=== PATIENT | male | born 1955 | race Caucasian/White ===

== ENCOUNTER 2020-09-16 16:41 | Inpatient (IN) ==
[2020-09-16] MEDS ORDERED: Naloxone 0.4 MG/ML INJ IVP PRN (21:48)
[2020-09-16] MEDS ORDERED: Acetaminophen 325 MG TABLET PO PRN (21:48)
[2020-09-16] MEDS ORDERED: Perflutren Lipid Microsphere 1.3 ML in 0.9 % Sodium Chloride 8.7 ML IVP PRN (22:42)
[2020-09-16] MEDS ORDERED: Milk and Molasses Enema 200 ML RC ONE (22:43)
[2020-09-16 22:55] LABS: BUN/Creatinine Ratio 49 (6-26); Blood Urea Nitrogen 41 mg/dL (8-23); Calcium 9.9 mg/dL (8.6-10.3); Carbon Dioxide 27 mEq/L (23-29); Chloride 95 mEq/L (98-107); Glucose 118 mg/dL (70-105); Osmolality,Calculated 281 (280-300); Potassium 4.8 mEq/L (3.5-5.1); Sodium 130 mEq/L (136-145); eGFR For African Americans > 60 (> 60); eGFR For Non-African Americans > 60 (> 60)
[2020-09-17 02:09] LABS: Alanine Aminotransferase 14 Units/L (7-52); Albumin 3.3 g/dL (3.5-5.7); Albumin/Globulin Ratio 1.2 (1.1-2.2); Alkaline Phosphatase 68 Units/L (34-104); Aspartate Amino Transferase 15 Units/L (13-39); BUN/Creatinine Ratio 48 (6-26); Bilirubin,Total 0.7 mg/dL (0.3-1.0); Blood Urea Nitrogen 43 mg/dL (8-23); Calcium 9.8 mg/dL (8.6-10.3); Carbon Dioxide 27 mEq/L (23-29); Chloride 96 mEq/L (98-107); Globulin 2.7 g/dL (2.4-3.5); Glucose 113 mg/dL (70-105); Magnesium 2.1 mg/dL (1.6-2.6); Osmolality,Calculated 282 (280-300); Potassium 4.8 mEq/L (3.5-5.1); Sodium 130 mEq/L (136-145); Troponin I < 0.03 ng/mL (< 0.04); eGFR For African Americans > 60 (> 60); eGFR For Non-African Americans > 60 (> 60)
[2020-09-17 02:09] LABS: Hematocrit 38.2 % (37.5-50.1); Hemoglobin 12.7 g/dL (12.9-16.9); Mean Corpuscular HGB Conc 33.2 g/dL (31.6-35.5); Mean Corpuscular Hemoglobin 29.7 pg (28.0-33.3); Mean Corpuscular Volume 89.3 fL (83.0-100.0); Mean Platelet Volume 9.8 fL (9.4-12.4); Platelet Count 170 K/mcL (140-400); Red Blood Count 4.28 M/mcL (4.19-5.50); Red Cell Distribution Width 13.4 % (11.5-14.5); White Blood Count 6.8 K/mcL (4.3-11.1)
[2020-09-17 02:16] LABS: INR 1.2
[2020-09-17 02:17] LABS: Thyroid Stimulating Hormone 1.157 mcIU/mL (0.340-5.600)
[2020-09-17 03:24] LABS: Lymphocytes # 0.8 K/mcL (0.6-4.6); Monocytes # 0.5 K/mcL (0.0-1.3); Platelet Estimate Normal (Normal); Reactive Lymphocytes Present (Not Present); Toxic Granulation Present (Not Present); Toxic Vacuolation Present (Not Present)
[2020-09-17 03:25] LABS: Poikilocytosis 1+ (Not Present)
[2020-09-17] MEDS: 0.9 % Sodium Chloride 1,000 ML IVC SCH ×2 (04:50→22:02)
[2020-09-17] MEDS: Ondansetron 4 MG/2 ML VIAL IVP PRN ×2 (09:21→20:27)
[2020-09-17 15:27] LABS: Hematocrit 36.1 % (37.5-50.1); Hemoglobin 12.1 g/dL (12.9-16.9)
[2020-09-17] MEDS: Divalproex (12 HR) 500 MG TABLET PO SCH (20:08)
[2020-09-18 05:21] LABS: Basophils % 0.1 %; Eosinophils % 0.1 %; Hematocrit 36.3 % (37.5-50.1); Hemoglobin 11.9 g/dL (12.9-16.9); Immature Granulocytes % 0.7 % (0-4); Lymphocytes # 0.9 K/mcL (0.6-4.6); Lymphocytes % 10.6 %; Mean Corpuscular HGB Conc 32.8 g/dL (31.6-35.5); Mean Corpuscular Hemoglobin 29.9 pg (28.0-33.3); Mean Corpuscular Volume 91.2 fL (83.0-100.0); Monocytes # 1.7 K/mcL (0.0-1.3); Monocytes % 18.7 %; Neutrophils # 6.2 K/mcL (1.6-8.9); Platelet Count 176 K/mcL (140-400); Red Blood Count 3.98 M/mcL (4.19-5.50); Red Cell Distribution Width 13.9 % (11.5-14.5); Segmented Neutrophils % 69.8 %; White Blood Count 8.9 K/mcL (4.3-11.1)
[2020-09-18 05:43] LABS: Platelet Estimate Normal (Normal)
[2020-09-18 05:45] LABS: BUN/Creatinine Ratio 48 (6-26); Blood Urea Nitrogen 47 mg/dL (8-23); Calcium 9.4 mg/dL (8.6-10.3); Carbon Dioxide 31 mEq/L (23-29); Chloride 105 mEq/L (98-107); Glucose 80 mg/dL (70-105); Osmolality,Calculated 299 (280-300); Potassium 4.4 mEq/L (3.5-5.1); Sodium 139 mEq/L (136-145); eGFR For African Americans > 60 (> 60); eGFR For Non-African Americans > 60 (> 60)
[2020-09-18] MEDS: Divalproex (12 HR) 500 MG TABLET PO SCH ×2 (07:42→21:55)
[2020-09-18] MEDS: BuPROPion XL (24 HR) 150 MG TABLET PO SCH (07:42)
[2020-09-18] MEDS ORDERED: Milk and Molasses Enema 200 ML RC ONE (07:47)
[2020-09-18] MEDS ORDERED: Metoprolol XL (24 HR) Succ 50 MG TAB.ER.24H PO SCH (09:00)
[2020-09-18] MEDS ORDERED: 0.9 % Sodium Chloride 1,000 ML IVC SCH (14:30)
[2020-09-18] MEDS ORDERED: 0.9 % Sodium Chloride 250 ML IVC ONE ×2 (15:50→17:16)
[2020-09-19 02:02] LABS: Hematocrit 34.8 % (37.5-50.1); Hemoglobin 11.5 g/dL (12.9-16.9); Mean Corpuscular Hemoglobin 30.6 pg (28.0-33.3); Mean Corpuscular Volume 92.6 fL (83.0-100.0); Mean Platelet Volume 9.9 fL (9.4-12.4); Platelet Count 176 K/mcL (140-400); Red Blood Count 3.76 M/mcL (4.19-5.50); Red Cell Distribution Width 14.1 % (11.5-14.5); White Blood Count 11.6 K/mcL (4.3-11.1)
[2020-09-19 02:21] LABS: BUN/Creatinine Ratio 50 (6-26); Blood Urea Nitrogen 33 mg/dL (8-23); Calcium 9.1 mg/dL (8.6-10.3); Carbon Dioxide 28 mEq/L (23-29); Chloride 109 mEq/L (98-107); Glucose 70 mg/dL (70-105); Osmolality,Calculated 300 (280-300); Potassium 4.2 mEq/L (3.5-5.1); Sodium 142 mEq/L (136-145); eGFR For African Americans > 60 (> 60); eGFR For Non-African Americans > 60 (> 60)
[2020-09-19 02:35] LABS: Lymphocytes # 1.2 K/mcL (0.6-4.6); Monocytes # 0.2 K/mcL (0.0-1.3); Neutrophils # 9.7 K/mcL (1.6-8.9)
[2020-09-19 02:36] LABS: Platelet Estimate Normal (Normal); Reactive Lymphocytes Present (Not Present)
[2020-09-19] MEDS ORDERED: 0.9 % Sodium Chloride 1,000 ML IVC SCH (08:00)
[2020-09-19] MEDS ORDERED: polyethylene glycoL 3350 17 GM POWD.PACK PO SCH (09:00)
[2020-09-19] MEDS: Bisacodyl 10 MG RECTAL SUPPOSITORY RC SCH (09:05)
[2020-09-19] MEDS: Metoprolol XL (24 HR) Succ 50 MG TAB.ER.24H PO SCH (09:06)
[2020-09-19] MEDS: Divalproex (12 HR) 500 MG TABLET PO SCH ×2 (09:07→21:08)
[2020-09-19] MEDS: BuPROPion XL (24 HR) 150 MG TABLET PO SCH (09:07)
[2020-09-19] MEDS: polyethylene glycoL 3350 17 GM POWD.PACK PO SCH (21:09)
[2020-09-19 21:46] LABS: Bacteria,Urine Few per hpf (None-Few); Bilirubin,Urine Negative (Negative); Blood,Urine Small (Negative); Clarity,Urine Ex.Turbid (Clear); Color,Urine Orange (Yellow); Glucose,Urine (UA) Normal (Normal); Ketones,Urine 60 mg/dL (Negative); Leukocyte Esterase,Urine Large (Negative); Mucus,Urine Few per lpf (None-Few); Nitrite,Urine Positive (Negative); PH,Urine 8.5 pH Units (5.0-8.0); Protein,Urine >=600 mg/dL (Neg-Trace); RBC,Urine TNTC per hpf (0-3); Triple Phosphate Crystal,Urine Present per hpf; Urobilinogen,Urine Normal (Normal); WBC,Urine TNTC per hpf (0-3)
[2020-09-20 02:38] LABS: Basophils # 0.1 K/mcL (0.0-0.2); Basophils % 0.3 %; Hematocrit 36.3 % (37.5-50.1); Lymphocytes # 0.9 K/mcL (0.6-4.6); Lymphocytes % 5.9 %; Mean Corpuscular HGB Conc 33.1 g/dL (31.6-35.5); Mean Corpuscular Volume 93.8 fL (83.0-100.0); Mean Platelet Volume 9.9 fL (9.4-12.4); Monocytes # 1.8 K/mcL (0.0-1.3); Monocytes % 11.3 %; Neutrophils # 12.6 K/mcL (1.6-8.9); Platelet Count 191 K/mcL (140-400); Red Blood Count 3.87 M/mcL (4.19-5.50); Red Cell Distribution Width 14.2 % (11.5-14.5); Segmented Neutrophils % 81.5 %; White Blood Count 15.5 K/mcL (4.3-11.1)
[2020-09-20 02:58] LABS: BUN/Creatinine Ratio 41 (6-26); Blood Urea Nitrogen 25 mg/dL (8-23); Calcium 9.4 mg/dL (8.6-10.3); Carbon Dioxide 27 mEq/L (23-29); Chloride 111 mEq/L (98-107); Glucose 77 mg/dL (70-105); Osmolality,Calculated 307 (280-300); Potassium 3.8 mEq/L (3.5-5.1); Sodium 147 mEq/L (136-145); eGFR For African Americans > 60 (> 60); eGFR For Non-African Americans > 60 (> 60)
[2020-09-20] MEDS: polyethylene glycoL 3350 17 GM POWD.PACK PO SCH ×2 (08:32→21:16)
[2020-09-20] MEDS: Divalproex (12 HR) 500 MG TABLET PO SCH ×2 (08:32→21:00)
[2020-09-20] MEDS: cefTRIAXone 1,000 MG in Water for inj. (sterile) 10 ML IVP SCH (08:32)
[2020-09-20] MEDS: BuPROPion XL (24 HR) 150 MG TABLET PO SCH (08:32)
[2020-09-20] MEDS: Metoprolol XL (24 HR) Succ 50 MG TAB.ER.24H PO SCH (08:32)
[2020-09-20] MEDS: Bisacodyl 10 MG RECTAL SUPPOSITORY RC SCH (15:06)
[2020-09-21 03:08] LABS: Basophils # 0.1 K/mcL (0.0-0.2); Basophils % 0.7 %; Eosinophils % 0.2 %; Hematocrit 39.1 % (37.5-50.1); Hemoglobin 12.4 g/dL (12.9-16.9); Immature Granulocytes % 2.1 % (0-4); Lymphocytes # 0.8 K/mcL (0.6-4.6); Mean Corpuscular HGB Conc 31.7 g/dL (31.6-35.5); Mean Corpuscular Hemoglobin 29.7 pg (28.0-33.3); Mean Corpuscular Volume 93.8 fL (83.0-100.0); Mean Platelet Volume 9.5 fL (9.4-12.4); Monocytes % 16.9 %; Neutrophils # 8.8 K/mcL (1.6-8.9); Platelet Count 201 K/mcL (140-400); Red Blood Count 4.17 M/mcL (4.19-5.50); Red Cell Distribution Width 14.4 % (11.5-14.5); Segmented Neutrophils % 73.1 %
[2020-09-21 03:14] LABS: BUN/Creatinine Ratio 49 (6-26); Blood Urea Nitrogen 30 mg/dL (8-23); Calcium 9.6 mg/dL (8.6-10.3); Carbon Dioxide 28 mEq/L (23-29); Chloride 112 mEq/L (98-107); Glucose 111 mg/dL (70-105); Osmolality,Calculated 313 (280-300); Potassium 3.5 mEq/L (3.5-5.1); Sodium 148 mEq/L (136-145); eGFR For African Americans > 60 (> 60); eGFR For Non-African Americans > 60 (> 60)
[2020-09-21] MEDS: Metoprolol XL (24 HR) Succ 50 MG TAB.ER.24H PO SCH (08:45)
[2020-09-21] MEDS: polyethylene glycoL 3350 17 GM POWD.PACK PO SCH ×2 (08:45→22:42)
[2020-09-21] MEDS: cefTRIAXone 1,000 MG in Water for inj. (sterile) 10 ML IVP SCH (08:45)
[2020-09-21] MEDS: Bisacodyl 10 MG RECTAL SUPPOSITORY RC SCH (08:45)
[2020-09-21] MEDS: Divalproex (12 HR) 500 MG TABLET PO SCH ×2 (08:45→22:41)
[2020-09-21] MEDS: BuPROPion XL (24 HR) 150 MG TABLET PO SCH (08:47)
[2020-09-21] MEDS ORDERED: *HR* Metoprolol 5 MG/5 ML VIAL IVP ONE (13:14)
[2020-09-21] MEDS ORDERED: SODIUM CHLORIDE/NAHCO3/KCL/PEG 4,000 ML SOLN.RECON PO ONE (17:00)
[2020-09-21] MEDS: Ondansetron 4 MG/2 ML VIAL IVP PRN (23:01)
[2020-09-22 04:45] LABS: Basophils # 0.1 K/mcL (0.0-0.2); Basophils % 0.6 %; Eosinophils # 0.1 K/mcL (0.0-0.6); Eosinophils % 1.6 %; Hemoglobin 11.8 g/dL (12.9-16.9); Immature Granulocytes % 2.1 % (0-4); Lymphocytes # 1.5 K/mcL (0.6-4.6); Lymphocytes % 16.6 %; Mean Corpuscular HGB Conc 31.9 g/dL (31.6-35.5); Mean Corpuscular Hemoglobin 30.6 pg (28.0-33.3); Mean Corpuscular Volume 95.9 fL (83.0-100.0); Mean Platelet Volume 9.7 fL (9.4-12.4); Monocytes # 1.3 K/mcL (0.0-1.3); Monocytes % 14.8 %; Neutrophils # 5.7 K/mcL (1.6-8.9); Platelet Count 196 K/mcL (140-400); Red Blood Count 3.86 M/mcL (4.19-5.50); Red Cell Distribution Width 14.3 % (11.5-14.5); Segmented Neutrophils % 64.3 %; White Blood Count 8.9 K/mcL (4.3-11.1)
[2020-09-22 05:04] LABS: BUN/Creatinine Ratio 40 (6-26); Blood Urea Nitrogen 27 mg/dL (8-23); Calcium 9.3 mg/dL (8.6-10.3); Carbon Dioxide 36 mEq/L (23-29); Chloride 111 mEq/L (98-107); Glucose 130 mg/dL (70-105); Osmolality,Calculated 315 (280-300); Potassium 3.4 mEq/L (3.5-5.1); Sodium 149 mEq/L (136-145); eGFR For African Americans > 60 (> 60); eGFR For Non-African Americans > 60 (> 60)
[2020-09-22] MEDS: BuPROPion XL (24 HR) 150 MG TABLET PO SCH (09:04)
[2020-09-22] MEDS: Divalproex (12 HR) 500 MG TABLET PO SCH ×2 (09:04→21:00)
[2020-09-22] MEDS: polyethylene glycoL 3350 17 GM POWD.PACK PO SCH ×2 (09:05→21:00)
[2020-09-22] MEDS: Metoprolol XL (24 HR) Succ 50 MG TAB.ER.24H PO SCH ×2 (09:05→09:26)
[2020-09-22] MEDS: cefTRIAXone 1,000 MG in Water for inj. (sterile) 10 ML IVP SCH (09:05)
[2020-09-22] MEDS: Bisacodyl 10 MG RECTAL SUPPOSITORY RC SCH (09:07)
[2020-09-22] MEDS ORDERED: SODIUM CHLORIDE/NAHCO3/KCL/PEG 4,000 ML SOLN.RECON PO ONE (17:00)
[2020-09-23 02:50] LABS: Hematocrit 34.2 % (37.5-50.1); Hemoglobin 10.7 g/dL (12.9-16.9); Mean Corpuscular HGB Conc 31.3 g/dL (31.6-35.5); Mean Corpuscular Volume 95.8 fL (83.0-100.0); Mean Platelet Volume 9.7 fL (9.4-12.4); Platelet Count 180 K/mcL (140-400); Red Blood Count 3.57 M/mcL (4.19-5.50); Red Cell Distribution Width 14.1 % (11.5-14.5); White Blood Count 9.7 K/mcL (4.3-11.1)
[2020-09-23 03:06] LABS: BUN/Creatinine Ratio 39 (6-26); Blood Urea Nitrogen 21 mg/dL (8-23); Calcium 8.7 mg/dL (8.6-10.3); Carbon Dioxide 30 mEq/L (23-29); Chloride 114 mEq/L (98-107); Glucose 83 mg/dL (70-105); Osmolality,Calculated 308 (280-300); Potassium 3.7 mEq/L (3.5-5.1); Sodium 148 mEq/L (136-145); eGFR For African Americans > 60 (> 60); eGFR For Non-African Americans > 60 (> 60)
[2020-09-23] MEDS: polyethylene glycoL 3350 17 GM POWD.PACK PO SCH ×2 (08:30→20:47)
[2020-09-23] MEDS: Bisacodyl 10 MG RECTAL SUPPOSITORY RC SCH (08:30)
[2020-09-23] MEDS: Divalproex (12 HR) 500 MG TABLET PO SCH ×2 (08:31→20:47)
[2020-09-23] MEDS: Metoprolol XL (24 HR) Succ 50 MG TAB.ER.24H PO SCH (08:31)
[2020-09-23] MEDS: BuPROPion XL (24 HR) 150 MG TABLET PO SCH (08:31)
[2020-09-23] MEDS: cefTRIAXone 1,000 MG in Water for inj. (sterile) 10 ML IVP SCH (10:56)
[2020-09-23] MEDS: Ringers Solution, Lactated 1,000 ML IVC SCH (12:26)
[2020-09-24] MEDS: Divalproex (12 HR) 500 MG TABLET PO SCH ×2 (08:28→21:36)
[2020-09-24] MEDS: Bisacodyl 10 MG RECTAL SUPPOSITORY RC SCH (08:29)
[2020-09-24] MEDS: BuPROPion XL (24 HR) 150 MG TABLET PO SCH (08:29)
[2020-09-24] MEDS: polyethylene glycoL 3350 17 GM POWD.PACK PO SCH (08:29)
[2020-09-24] MEDS: Metoprolol XL (24 HR) Succ 50 MG TAB.ER.24H PO SCH (08:29)
[2020-09-24] MEDS: Ringers Solution, Lactated 1,000 ML IVC SCH (08:37)
[2020-09-24] MEDS: cefTRIAXone 1,000 MG in Water for inj. (sterile) 10 ML IVP SCH (10:08)
[2020-09-24 10:13] LABS: BUN/Creatinine Ratio 27 (6-26); Blood Urea Nitrogen 14 mg/dL (8-23); Calcium 8.8 mg/dL (8.6-10.3); Carbon Dioxide 33 mEq/L (23-29); Chloride 109 mEq/L (98-107); Glucose 89 mg/dL (70-105); Osmolality,Calculated 300 (280-300); Potassium 3.8 mEq/L (3.5-5.1); Sodium 145 mEq/L (136-145); eGFR For African Americans > 60 (> 60); eGFR For Non-African Americans > 60 (> 60)
[2020-09-24] MEDS ORDERED: Isovue-370 500 ML BOTTLE IVP ONE (14:12)
[2020-09-24] MEDS ORDERED: cloZAPine 100 MG TABLET PO SCH (21:00)
[2020-09-25 06:57] VITALS: BP 110/80; PULSE 97; TEMP 97.6; O2SAT 93
[2020-09-25] MEDS: BuPROPion XL (24 HR) 150 MG TABLET PO SCH (08:09)
[2020-09-25] MEDS: Divalproex (12 HR) 500 MG TABLET PO SCH (08:09)
[2020-09-25] MEDS: Metoprolol XL (24 HR) Succ 50 MG TAB.ER.24H PO SCH (08:09)
[2020-09-25] MEDS: cefTRIAXone 1,000 MG in Water for inj. (sterile) 10 ML IVP SCH (08:51)
[2020-09-25] MEDS ORDERED: polyethylene glycoL 3350 17 GM POWD.PACK PO SCH (09:00)
[2020-09-25] MEDS ORDERED: cloZAPine 100 MG TABLET PO SCH (09:00)
== END 2020-09-25 18:23 | DRG 389 ==
LOC: 3BNU → SUATTDRO 09-18 14:42
PROVIDERS: ADMIT Internal Medicine; ATTEND Registered Nurse

== ENCOUNTER 2020-10-01 00:49 | Inpatient (IN) ==
[2020-10-01] MEDS ORDERED: Ondansetron 4 MG/2 ML VIAL IVP PRN (02:07)
[2020-10-01] MEDS ORDERED: Naloxone 0.4 MG/ML INJ IVP PRN (02:07)
[2020-10-01] MEDS: 0.9 % Sodium Chloride 1,000 ML IVC SCH ×2 (03:59→13:40)
[2020-10-01 06:35] LABS: Basophils # 0.1 K/mcL (0.0-0.2); Basophils % 0.6 %; Eosinophils # 0.1 K/mcL (0.0-0.6); Eosinophils % 0.6 %; Hematocrit 36.5 % (37.5-50.1); Hemoglobin 11.5 g/dL (12.9-16.9); Immature Granulocytes % 1.1 % (0-4); Lymphocytes % 20.3 %; Mean Corpuscular HGB Conc 31.5 g/dL (31.6-35.5); Mean Corpuscular Hemoglobin 29.8 pg (28.0-33.3); Mean Corpuscular Volume 94.6 fL (83.0-100.0); Mean Platelet Volume 9.4 fL (9.4-12.4); Monocytes # 1.3 K/mcL (0.0-1.3); Monocytes % 13.4 %; Neutrophils # 6.2 K/mcL (1.6-8.9); Platelet Count 267 K/mcL (140-400); Red Blood Count 3.86 M/mcL (4.19-5.50); Red Cell Distribution Width 14.2 % (11.5-14.5); White Blood Count 9.7 K/mcL (4.3-11.1)
[2020-10-01 06:48] LABS: INR 1.1; Prothrombin Time 12.2 Seconds (9.4-12.1)
[2020-10-01 07:00] LABS: BUN/Creatinine Ratio 19 (6-26); Blood Urea Nitrogen 17 mg/dL (8-23); Calcium 8.8 mg/dL (8.6-10.3); Carbon Dioxide 30 mEq/L (23-29); Chloride 103 mEq/L (98-107); Glucose 78 mg/dL (70-105); Magnesium 1.6 mg/dL (1.6-2.6); Osmolality,Calculated 288 (280-300); Potassium 3.9 mEq/L (3.5-5.1); Sodium 139 mEq/L (136-145); eGFR For African Americans > 60 (> 60); eGFR For Non-African Americans > 60 (> 60)
[2020-10-01] MEDS: cefTRIAXone 1,000 MG in 0.9 % Sodium Chloride Mini Bag 100 ML IVPB SCH (08:47)
[2020-10-01] MEDS ORDERED: D5% in Water 1,000 ML IVC PRN (12:15)
[2020-10-01] MEDS ORDERED: Dextrose Gel 15 GM/37.5 ML TUBE PO PRN ×2 (12:15)
[2020-10-01] MEDS: *HR* Dextrose 50 % in Water (Vial) 50 ML VIAL IVP PRN ×2 (12:23→17:20)
[2020-10-02] MEDS: cefTRIAXone 1,000 MG in 0.9 % Sodium Chloride Mini Bag 100 ML IVPB SCH (08:52)
[2020-10-02] MEDS: Valproic Acid INJ 250 MG in 0.9 % Sodium Chloride 100 ML IVPB SCH ×3 (10:19→22:08)
[2020-10-02] MEDS: Bisacodyl 10 MG RECTAL SUPPOSITORY RC SCH ×2 (12:22→22:07)
[2020-10-03 01:37] LABS: Basophils % 0.7 %; Eosinophils # 0.1 K/mcL (0.0-0.6); Eosinophils % 1.8 %; Hematocrit 35.9 % (37.5-50.1); Hemoglobin 11.6 g/dL (12.9-16.9); Immature Granulocytes % 1.2 % (0-4); Lymphocytes # 1.8 K/mcL (0.6-4.6); Lymphocytes % 29.1 %; Mean Corpuscular HGB Conc 32.3 g/dL (31.6-35.5); Mean Corpuscular Hemoglobin 30.3 pg (28.0-33.3); Mean Corpuscular Volume 93.7 fL (83.0-100.0); Mean Platelet Volume 9.5 fL (9.4-12.4); Monocytes % 16.4 %; Neutrophils # 3.1 K/mcL (1.6-8.9); Platelet Count 271 K/mcL (140-400); Red Blood Count 3.83 M/mcL (4.19-5.50); Red Cell Distribution Width 14.2 % (11.5-14.5); Segmented Neutrophils % 50.8 %
[2020-10-03 02:02] LABS: Alanine Aminotransferase 11 Units/L (7-52); Albumin 2.5 g/dL (3.5-5.7); Alkaline Phosphatase 59 Units/L (34-104); Aspartate Amino Transferase 12 Units/L (13-39); BUN/Creatinine Ratio 37 (6-26); Bilirubin,Total 0.6 mg/dL (0.3-1.0); Blood Urea Nitrogen 17 mg/dL (8-23); Calcium 8.8 mg/dL (8.6-10.3); Carbon Dioxide 32 mEq/L (23-29); Chloride 101 mEq/L (98-107); Globulin 2.5 g/dL (2.4-3.5); Glucose 78 mg/dL (70-105); Osmolality,Calculated 290 (280-300); Potassium 3.2 mEq/L (3.5-5.1); Sodium 140 mEq/L (136-145); eGFR For African Americans > 60 (> 60); eGFR For Non-African Americans > 60 (> 60)
[2020-10-03] MEDS: Valproic Acid INJ 250 MG in 0.9 % Sodium Chloride 100 ML IVPB SCH ×4 (04:22→23:26)
[2020-10-03] MEDS: *HR* Dextrose 50 % in Water (Vial) 50 ML VIAL IVP PRN (05:52)
[2020-10-03] MEDS: cefTRIAXone 1,000 MG in 0.9 % Sodium Chloride Mini Bag 100 ML IVPB SCH (09:23)
[2020-10-03] MEDS: Bisacodyl 10 MG RECTAL SUPPOSITORY RC SCH ×2 (09:23→21:45)
[2020-10-03] MEDS: D5% in 0.9% NACL w KCl 20 MEQ/1,000 ML MLS IVC SCH ×2 (09:23→19:41)
[2020-10-04 02:25] LABS: Basophils # 0.1 K/mcL (0.0-0.2); Eosinophils # 0.2 K/mcL (0.0-0.6); Eosinophils % 3.4 %; Hematocrit 36.1 % (37.5-50.1); Hemoglobin 11.9 g/dL (12.9-16.9); Immature Granulocytes % 0.6 % (0-4); Lymphocytes # 1.4 K/mcL (0.6-4.6); Lymphocytes % 28.6 %; Mean Corpuscular Hemoglobin 30.9 pg (28.0-33.3); Mean Corpuscular Volume 93.8 fL (83.0-100.0); Mean Platelet Volume 9.4 fL (9.4-12.4); Monocytes # 0.8 K/mcL (0.0-1.3); Monocytes % 15.6 %; Neutrophils # 2.5 K/mcL (1.6-8.9); Platelet Count 260 K/mcL (140-400); Red Blood Count 3.85 M/mcL (4.19-5.50); Red Cell Distribution Width 13.9 % (11.5-14.5); Segmented Neutrophils % 50.8 %
[2020-10-04 02:47] LABS: Alanine Aminotransferase 11 Units/L (7-52); Albumin 2.6 g/dL (3.5-5.7); Alkaline Phosphatase 59 Units/L (34-104); Aspartate Amino Transferase 11 Units/L (13-39); BUN/Creatinine Ratio 30 (6-26); Bilirubin,Total 0.4 mg/dL (0.3-1.0); Blood Urea Nitrogen 14 mg/dL (8-23); Calcium 8.9 mg/dL (8.6-10.3); Carbon Dioxide 31 mEq/L (23-29); Chloride 108 mEq/L (98-107); Globulin 2.5 g/dL (2.4-3.5); Glucose 103 mg/dL (70-105); Osmolality,Calculated 299 (280-300); Potassium 3.3 mEq/L (3.5-5.1); Sodium 144 mEq/L (136-145); Total Protein 5.1 g/dL (6.4-8.9); eGFR For African Americans > 60 (> 60); eGFR For Non-African Americans > 60 (> 60)
[2020-10-04] MEDS: Valproic Acid INJ 250 MG in 0.9 % Sodium Chloride 100 ML IVPB SCH ×4 (04:00→22:05)
[2020-10-04] MEDS: D5% in 0.9% NACL w KCl 20 MEQ/1,000 ML MLS IVC SCH ×2 (04:00→13:11)
[2020-10-04] MEDS: cefTRIAXone 1,000 MG in 0.9 % Sodium Chloride Mini Bag 100 ML IVPB SCH (08:46)
[2020-10-04] MEDS: Bisacodyl 10 MG RECTAL SUPPOSITORY RC SCH ×2 (08:47→21:12)
[2020-10-04] MEDS ORDERED: Isovue-370 500 ML BOTTLE IVP ONE (10:25)
[2020-10-04] MEDS ORDERED: Bisacodyl 10 MG RECTAL SUPPOSITORY RC PRN (13:08)
[2020-10-04] MEDS ORDERED: MOM Conc 10 ML UD.LIQ PO PRN (13:08)
[2020-10-04] MEDS: Potassium Chloride 20 MEQ in D5% in Water 1,000 ML IVC SCH (16:31)
[2020-10-04] MEDS ORDERED: Divalproex (12 HR) 500 MG TABLET PO SCH (21:00)
[2020-10-04] MEDS: cloZAPine 100 MG TABLET PO SCH (21:08)
[2020-10-05] MEDS: Potassium Chloride 20 MEQ in D5% in Water 1,000 ML IVC SCH ×3 (01:23→21:55)
[2020-10-05] MEDS: Valproic Acid INJ 250 MG in 0.9 % Sodium Chloride 100 ML IVPB SCH ×3 (04:20→16:15)
[2020-10-05 06:37] LABS: Basophils % 0.7 %; Eosinophils # 0.3 K/mcL (0.0-0.6); Eosinophils % 4.6 %; Hematocrit 39.2 % (37.5-50.1); Hemoglobin 12.4 g/dL (12.9-16.9); Immature Granulocytes % 0.7 % (0-4); Lymphocytes # 1.5 K/mcL (0.6-4.6); Lymphocytes % 25.1 %; Mean Corpuscular HGB Conc 31.6 g/dL (31.6-35.5); Mean Corpuscular Hemoglobin 30.1 pg (28.0-33.3); Mean Corpuscular Volume 95.1 fL (83.0-100.0); Mean Platelet Volume 9.4 fL (9.4-12.4); Monocytes # 0.8 K/mcL (0.0-1.3); Monocytes % 13.1 %; Neutrophils # 3.4 K/mcL (1.6-8.9); Platelet Count 259 K/mcL (140-400); Red Blood Count 4.12 M/mcL (4.19-5.50); Red Cell Distribution Width 14.2 % (11.5-14.5); Segmented Neutrophils % 55.8 %; White Blood Count 6.1 K/mcL (4.3-11.1)
[2020-10-05 06:59] LABS: Alanine Aminotransferase 11 Units/L (7-52); Albumin 2.8 g/dL (3.5-5.7); Albumin/Globulin Ratio 1.1 (1.1-2.2); Alkaline Phosphatase 64 Units/L (34-104); Aspartate Amino Transferase 11 Units/L (13-39); BUN/Creatinine Ratio 21 (6-26); Bilirubin,Total 0.5 mg/dL (0.3-1.0); Blood Urea Nitrogen 12 mg/dL (8-23); Carbon Dioxide 32 mEq/L (23-29); Chloride 110 mEq/L (98-107); Globulin 2.6 g/dL (2.4-3.5); Glucose 102 mg/dL (70-105); Osmolality,Calculated 302 (280-300); Potassium 3.8 mEq/L (3.5-5.1); Sodium 146 mEq/L (136-145); Total Protein 5.4 g/dL (6.4-8.9); eGFR For African Americans > 60 (> 60); eGFR For Non-African Americans > 60 (> 60)
[2020-10-05 10:09] LABS: Calcium 9.2 mg/dL (8.6-10.3)
[2020-10-05] MEDS: cefTRIAXone 1,000 MG in 0.9 % Sodium Chloride Mini Bag 100 ML IVPB SCH (10:33)
[2020-10-05] MEDS: Bisacodyl 10 MG RECTAL SUPPOSITORY RC SCH ×2 (10:34→23:58)
[2020-10-05] MEDS: cloZAPine 100 MG TABLET PO SCH ×2 (11:35→23:57)
[2020-10-05] MEDS: Metoprolol XL (24 HR) Succ 50 MG TAB.ER.24H PO SCH (11:35)
[2020-10-05] MEDS: BuPROPion XL (24 HR) 150 MG TABLET PO SCH (11:35)
[2020-10-05] MEDS ORDERED: SODIUM CHLORIDE/NAHCO3/KCL/PEG 4,000 ML SOLN.RECON GTUBE ONE (12:17)
[2020-10-06] MEDS: Valproic Acid INJ 250 MG in 0.9 % Sodium Chloride 100 ML IVPB SCH ×5 (00:10→22:48)
[2020-10-06] MEDS: Bisacodyl 10 MG RECTAL SUPPOSITORY RC SCH ×2 (08:03→20:58)
[2020-10-06] MEDS: Metoprolol XL (24 HR) Succ 50 MG TAB.ER.24H PO SCH (08:03)
[2020-10-06] MEDS: BuPROPion XL (24 HR) 150 MG TABLET PO SCH (08:03)
[2020-10-06] MEDS: cloZAPine 100 MG TABLET PO SCH ×2 (08:04→20:59)
[2020-10-06] MEDS: cefTRIAXone 1,000 MG in 0.9 % Sodium Chloride Mini Bag 100 ML IVPB SCH (08:06)
[2020-10-06 08:07] LABS: BUN/Creatinine Ratio 24 (6-26); Blood Urea Nitrogen 12 mg/dL (8-23); Calcium 8.7 mg/dL (8.6-10.3); Carbon Dioxide 29 mEq/L (23-29); Chloride 105 mEq/L (98-107); Glucose 82 mg/dL (70-105); Magnesium 1.6 mg/dL (1.6-2.6); Osmolality,Calculated 287 (280-300); Potassium 4.2 mEq/L (3.5-5.1); Sodium 139 mEq/L (136-145); eGFR For African Americans > 60 (> 60); eGFR For Non-African Americans > 60 (> 60)
[2020-10-06] MEDS: Potassium Chloride 20 MEQ in D5% in Water 1,000 ML IVC SCH ×2 (08:07→18:17)
[2020-10-06 13:18] LABS: Basophils # 0.1 K/mcL (0.0-0.2); Basophils % 0.9 %; Eosinophils # 0.4 K/mcL (0.0-0.6); Eosinophils % 5.6 %; Hematocrit 39.7 % (37.5-50.1); Hemoglobin 12.5 g/dL (12.9-16.9); Immature Granulocytes % 1.5 % (0-4); Mean Corpuscular HGB Conc 31.5 g/dL (31.6-35.5); Mean Corpuscular Hemoglobin 29.8 pg (28.0-33.3); Mean Corpuscular Volume 94.5 fL (83.0-100.0); Monocytes # 0.8 K/mcL (0.0-1.3); Monocytes % 12.6 %; Neutrophils # 3.3 K/mcL (1.6-8.9); Platelet Count 225 K/mcL (140-400); Red Cell Distribution Width 14.2 % (11.5-14.5); Segmented Neutrophils % 49.4 %; White Blood Count 6.6 K/mcL (4.3-11.1)
[2020-10-06] MEDS ORDERED: Lidocaine -MPF 2% 5 ML VIAL ONE (13:46)
[2020-10-06] MEDS ORDERED: *HR* Propofol 200 MG/20 ML VIAL IVP ONE (13:46)
[2020-10-06] MEDS ORDERED: *HR* EPINEPHrine 1 MG/10 ML SYRINGE INTRATRACH PRN (14:57)
[2020-10-06 16:19] LABS: Carcinoembryonic Antigen 2.9 ng/mL (Less than 5.0)
[2020-10-07] MEDS: Valproic Acid INJ 250 MG in 0.9 % Sodium Chloride 100 ML IVPB SCH ×2 (04:26→21:47)
[2020-10-07] MEDS: Bisacodyl 10 MG RECTAL SUPPOSITORY RC SCH (07:38)
[2020-10-07] MEDS: cloZAPine 100 MG TABLET PO SCH ×2 (09:19→21:46)
[2020-10-07] MEDS: Potassium Chloride 20 MEQ in D5% in Water 1,000 ML IVC SCH ×2 (09:22→18:23)
[2020-10-07] MEDS: BuPROPion XL (24 HR) 150 MG TABLET PO SCH (09:22)
[2020-10-07] MEDS: Metoprolol XL (24 HR) Succ 50 MG TAB.ER.24H PO SCH (09:22)
[2020-10-07] MEDS: cefTRIAXone 1,000 MG in 0.9 % Sodium Chloride Mini Bag 100 ML IVPB SCH (09:22)
[2020-10-07] MEDS ORDERED: Lidocaine HCL 4 ML Topical Solution (Laryng-O-Jet Kit Sterile Pak) TP ONE (12:54)
[2020-10-07] MEDS ORDERED: *HR* FentaNYL (PF) 100 MCG/2 ML VIAL ONE (12:57)
[2020-10-07] MEDS ORDERED: *HR* Propofol 200 MG/20 ML VIAL IVP ONE (12:57)
[2020-10-07] MEDS ORDERED: *HR* Rocuronium Bromide 50 MG/5 ML VIAL ONE ×2 (12:59→15:26)
[2020-10-07] MEDS ORDERED: *HR* Magnesium Sulfate 1 GM/2 ML VIAL ONE (12:59)
[2020-10-07] MEDS ORDERED: Ondansetron 4 MG/2 ML VIAL ONE (12:59)
[2020-10-07] MEDS ORDERED: Lidocaine -MPF 2% 2 ML VIAL ONE (12:59)
[2020-10-07] MEDS ORDERED: *HR* HYDROMORPHONE 2 MG/ML VIAL ONE (13:30)
[2020-10-07] MEDS ORDERED: *HR* Midazolam HCl 2 MG/2 ML VIAL ONE (13:30)
[2020-10-07] MEDS ORDERED: CefOXitin 1,000 MG VIAL ONE (13:31)
[2020-10-07] MEDS ORDERED: *HR* Vasopressin 20 UNIT/ML VIAL ONE (13:34)
[2020-10-07] MEDS ORDERED: Albumin Human 5% 12.5 GM/250 ML IV.SOLN ONE ×2 (13:34→15:11)
[2020-10-07] MEDS ORDERED: Albuterol 2.5 MG/3 ML NEBULIZER IH PRN ×2 (14:01→17:37)
[2020-10-07] MEDS ORDERED: Ondansetron 4 MG/2 ML VIAL IVP PRN ×3 (14:01→17:37)
[2020-10-07] MEDS: *HR* HYDROmorphone PF 0.5 MG/0.5 ML SYRINGE IVP PRN ×2 (16:35→16:50)
[2020-10-07] MEDS ORDERED: Naloxone 0.4 MG/ML INJ IVP PRN (17:37)
[2020-10-07] MEDS ORDERED: Dextrose Gel 15 GM/37.5 ML TUBE PO PRN ×2 (17:37)
[2020-10-07] MEDS ORDERED: MOM Conc 10 ML UD.LIQ PO PRN (17:37)
[2020-10-07] MEDS ORDERED: Bisacodyl 10 MG RECTAL SUPPOSITORY RC PRN (17:37)
[2020-10-07] MEDS ORDERED: *HR* Dextrose 50 % in Water (Vial) 50 ML VIAL IVP PRN (17:37)
[2020-10-07] MEDS ORDERED: D5% in Water 1,000 ML IVC PRN (17:37)
[2020-10-07] MEDS ORDERED: Bisacodyl 10 MG RECTAL SUPPOSITORY RC SCH (21:00)
[2020-10-08 01:18] LABS: Basophils % 0.2 %; Hematocrit 35.7 % (37.5-50.1); Hemoglobin 11.3 g/dL (12.9-16.9); Immature Granulocytes % 0.8 % (0-4); Lymphocytes # 0.7 K/mcL (0.6-4.6); Lymphocytes % 7.7 %; Mean Corpuscular HGB Conc 31.7 g/dL (31.6-35.5); Mean Corpuscular Hemoglobin 30.5 pg (28.0-33.3); Mean Corpuscular Volume 96.2 fL (83.0-100.0); Mean Platelet Volume 10.4 fL (9.4-12.4); Monocytes # 0.4 K/mcL (0.0-1.3); Monocytes % 4.6 %; Neutrophils # 7.8 K/mcL (1.6-8.9); Platelet Count 181 K/mcL (140-400); Red Blood Count 3.71 M/mcL (4.19-5.50); Red Cell Distribution Width 13.6 % (11.5-14.5); Segmented Neutrophils % 86.7 %
[2020-10-08 01:38] LABS: Alanine Aminotransferase 19 Units/L (7-52); Albumin 2.9 g/dL (3.5-5.7); Albumin/Globulin Ratio 1.1 (1.1-2.2); Alkaline Phosphatase 116 Units/L (34-104); Aspartate Amino Transferase 27 Units/L (13-39); BUN/Creatinine Ratio 17 (6-26); Bilirubin,Total 0.7 mg/dL (0.3-1.0); Blood Urea Nitrogen 8 mg/dL (8-23); Calcium 8.5 mg/dL (8.6-10.3); Carbon Dioxide 25 mEq/L (23-29); Chloride 103 mEq/L (98-107); Globulin 2.6 g/dL (2.4-3.5); Glucose 128 mg/dL (70-105); Osmolality,Calculated 280 (280-300); Potassium 4.6 mEq/L (3.5-5.1); Sodium 135 mEq/L (136-145); Total Protein 5.5 g/dL (6.4-8.9); eGFR For African Americans > 60 (> 60); eGFR For Non-African Americans > 60 (> 60)
[2020-10-08] MEDS: Potassium Chloride 20 MEQ in D5% in Water 1,000 ML IVC SCH ×3 (02:58→19:22)
[2020-10-08] MEDS: Valproic Acid INJ 250 MG in 0.9 % Sodium Chloride 100 ML IVPB SCH ×7 (05:29→22:37)
[2020-10-08] MEDS: cloZAPine 100 MG TABLET PO SCH ×2 (08:54→21:08)
[2020-10-08] MEDS ORDERED: BuPROPion XL (24 HR) 150 MG TABLET PO SCH (09:00)
[2020-10-08] MEDS ORDERED: Metoprolol XL (24 HR) Succ 50 MG TAB.ER.24H PO SCH (09:00)
[2020-10-08 11:27] LABS: Magnesium 1.7 mg/dL (1.6-2.6)
[2020-10-08] MEDS ORDERED: Lidocaine -MPF 1% 5 ML AMPUL INFILT ONE (12:04)
[2020-10-08] MEDS ORDERED: D10% in Water 500 ML IVC PRN (12:18)
[2020-10-08] MEDS: Insulin LISPRO 300 UNITS/3 ML VIAL SUBQ SCH ×3 (15:57→21:10)
[2020-10-08] MEDS: Pantoprazole 40 MG VIAL IVP SCH (16:17)
[2020-10-08] MEDS ORDERED: Clinimix E 5%-15% SOLUTION 2,000 ML with MVI, adult with vitamin K 10 ML IVC SCH (17:00)
[2020-10-08 23:24] LABS: ABG Base Excess 5 mEq/L (-2 to 3); ABG HCO3 31 mEq/L (21-27); ABG Oxygen Saturation 93 % (95-98); ABG PCO2 51 mmHg (35-45); ABG PH 7.39 pH Units (7.32-7.45); ABG PO2 69 mmHg (85-104); ABG TCO2 32 mEq/L (20-26)
[2020-10-09] MEDS: Potassium Chloride 20 MEQ in D5% in Water 1,000 ML IVC SCH ×4 (00:38→23:53)
[2020-10-09] MEDS: Insulin LISPRO 300 UNITS/3 ML VIAL SUBQ SCH ×7 (00:38→23:49)
[2020-10-09 05:03] LABS: ABG Base Excess 5 mEq/L (-2 to 3); ABG HCO3 31 mEq/L (21-27); ABG Oxygen Saturation 88 % (95-98); ABG PCO2 49 mmHg (35-45); ABG PH 7.41 pH Units (7.32-7.45); ABG PO2 55 mmHg (85-104); ABG TCO2 33 mEq/L (20-26)
[2020-10-09] MEDS ORDERED: Furosemide 40 MG/4 ML VIAL IVP ONE (05:05)
[2020-10-09 05:10] LABS: Basophils % 0.1 %; Eosinophils % 0.3 %; Hematocrit 34.9 % (37.5-50.1); Hemoglobin 11.6 g/dL (12.9-16.9); Immature Granulocytes % 0.6 % (0-4); Lymphocytes # 0.9 K/mcL (0.6-4.6); Lymphocytes % 9.9 %; Mean Corpuscular HGB Conc 33.2 g/dL (31.6-35.5); Mean Corpuscular Hemoglobin 30.7 pg (28.0-33.3); Mean Corpuscular Volume 92.3 fL (83.0-100.0); Mean Platelet Volume 10.7 fL (9.4-12.4); Monocytes # 0.7 K/mcL (0.0-1.3); Monocytes % 7.5 %; Neutrophils # 7.7 K/mcL (1.6-8.9); Platelet Count 171 K/mcL (140-400); Red Blood Count 3.78 M/mcL (4.19-5.50); Red Cell Distribution Width 13.6 % (11.5-14.5); Segmented Neutrophils % 81.6 %; White Blood Count 9.5 K/mcL (4.3-11.1)
[2020-10-09 05:35] LABS: Magnesium 1.6 mg/dL (1.6-2.6)
[2020-10-09 05:37] LABS: Alanine Aminotransferase 14 Units/L (7-52); Albumin 2.8 g/dL (3.5-5.7); Albumin/Globulin Ratio 1.2 (1.1-2.2); Alkaline Phosphatase 98 Units/L (34-104); Aspartate Amino Transferase 13 Units/L (13-39); BUN/Creatinine Ratio 15 (6-26); Bilirubin,Total 0.4 mg/dL (0.3-1.0); Blood Urea Nitrogen 7 mg/dL (8-23); Calcium 9.2 mg/dL (8.6-10.3); Carbon Dioxide 31 mEq/L (23-29); Chloride 98 mEq/L (98-107); Globulin 2.4 g/dL (2.4-3.5); Glucose 146 mg/dL (70-105); Osmolality,Calculated 275 (280-300); Potassium 4.2 mEq/L (3.5-5.1); Sodium 132 mEq/L (136-145); Total Protein 5.2 g/dL (6.4-8.9); eGFR For African Americans > 60 (> 60); eGFR For Non-African Americans > 60 (> 60)
[2020-10-09 07:09] LABS: Adenovirus Not Detected (Not Detect); Bordetella Pertussis Not Detected (Not Detect); Chlamydophila pneumoniae Not Detected (Not Detect); Coronavirus 229E Not Detected (Not Detect); Coronavirus HKU1 Not Detected (Not Detect); Coronavirus NL63 Not Detected (Not Detect); Coronavirus OC43 Not Detected (Not Detect); Human Metapneumovirus Not Detected (Not Detect); Human Rhinovirus/Enterovirus Not Detected (Not Detect); Influenza A Subtype 2009 H1 Not Detected (Not Detect); Influenza B Not Detected (Not Detect); Mycoplasma pneumoniae Not Detected (Not Detect); Parainfluenza Virus 1 Not Detected (Not Detect); Parainfluenza Virus 2 Not Detected (Not Detect); Parainfluenza Virus 3 Not Detected (Not Detect); Parainfluenza Virus 4 Not Detected (Not Detect); Respiratory Syncytial Virus Not Detected (Not Detect)
[2020-10-09 07:10] LABS: SARS-CoV-2 DETECTED (Not Detect)
[2020-10-09] MEDS: Valproic Acid INJ 250 MG in 0.9 % Sodium Chloride 100 ML IVPB SCH ×3 (08:11→20:37)
[2020-10-09] MEDS: cloZAPine 100 MG TABLET PO SCH ×2 (08:12→20:12)
[2020-10-09] MEDS: Pantoprazole 40 MG VIAL IVP SCH (08:14)
[2020-10-09 08:31] LABS: ABG Base Excess 7 mEq/L (-2 to 3); ABG HCO3 33 mEq/L (21-27); ABG Oxygen Saturation 98 % (95-98); ABG PCO2 53 mmHg (35-45); ABG PH 7.41 pH Units (7.32-7.45); ABG PO2 99 mmHg (85-104); ABG TCO2 35 mEq/L (20-26)
[2020-10-09] MEDS ORDERED: 0.9 % Sodium Chloride 250 ML IV ONE (08:34)
[2020-10-09] MEDS ORDERED: Remdesivir 200 MG in 0.9 % Sodium Chloride 100 ML IVPB ONE (09:00)
[2020-10-09] MEDS ORDERED: Ipratropium 1 PUFF INHALER IH PRN (10:58)
[2020-10-09] MEDS ORDERED: GuaiFENesin Liq 200 MG/10 ML UDC PO PRN (10:58)
[2020-10-09 13:29] LABS: VBG HCO3 32 mEq/L (21-27); VBG PCO2 58 mmHg (41-51); VBG PH 7.35 pH Units (7.32-7.42); VBG PO2 59 mmHg (25-50)
[2020-10-09] MEDS ORDERED: Isovue-370 500 ML BOTTLE IVP ONE ×2 (13:53→14:09)
[2020-10-09] MEDS ORDERED: Albumin Human 5% 25.0 GM/500 ML IV.SOLN ONE (14:30)
[2020-10-09] MEDS ORDERED: 0.9 % Sodium Chloride 500 ML ONE (14:34)
[2020-10-09] MEDS ORDERED: Dexmedetomidine HCl 400 MCG/100 ML MLS IVC ONE (14:41)
[2020-10-09] MEDS ORDERED: Artificial Tears SOLN 15 ML BOTTLE BOTH EYES PRN (15:29)
[2020-10-09] MEDS ORDERED: Albumin Human 5% 12.5 GM/250 ML IV.SOLN ONE (15:42)
[2020-10-09] MEDS ORDERED: Norepinephrine 4 MG/254 ML in 0.9% Sodium Chloride IVC ONE (15:47)
[2020-10-09] MEDS ORDERED: *HR* Etomidate 20 MG/10 ML AMPUL IVP ONE (15:50)
[2020-10-09] MEDS ORDERED: *HR* Propofol 200 MG/20 ML VIAL IVP ONE (15:50)
[2020-10-09] MEDS ORDERED: *HR* Midazolam HCl 5 MG/5 ML VIAL IVP ONE (15:50)
[2020-10-09 16:10] LABS: ABG Base Excess 6 mEq/L (-2 to 3); ABG HCO3 32 mEq/L (21-27); ABG Oxygen Saturation 91 % (95-98); ABG PCO2 55 mmHg (35-45); ABG PH 7.38 pH Units (7.32-7.45); ABG PO2 64 mmHg (85-104); ABG TCO2 34 mEq/L (20-26); Blood Gas VT 400 cc
[2020-10-09] MEDS ORDERED: Clinimix E 5%-15% SOLUTION 2,000 ML with MVI, adult with vitamin K 10 ML IVC SCH (17:00)
[2020-10-09] MEDS: Dexmedetomidine HCl 400 MCG/100 ML MLS IVC SCH (18:00)
[2020-10-09] MEDS: FentaNYL (PF) 1,000 MCG/100 ML IV.SOLN IVC SCH ×2 (18:00→23:49)
[2020-10-09] MEDS: Norepinephrine 4 MG/254 ML IV.SOLN IVC SCH (18:00)
[2020-10-09] MEDS: Artificial Tears SOLN 15 ML BOTTLE BOTH EYES SCH ×3 (18:25→23:50)
[2020-10-09 18:43] LABS: Basophils % 0.1 %; Hematocrit 30.5 % (37.5-50.1); Hemoglobin 10.2 g/dL (12.9-16.9); Immature Granulocytes % 0.7 % (0-4); Lymphocytes # 0.4 K/mcL (0.6-4.6); Lymphocytes % 3.2 %; Mean Corpuscular HGB Conc 33.4 g/dL (31.6-35.5); Mean Corpuscular Hemoglobin 30.2 pg (28.0-33.3); Mean Corpuscular Volume 90.2 fL (83.0-100.0); Mean Platelet Volume 10.7 fL (9.4-12.4); Monocytes # 0.4 K/mcL (0.0-1.3); Monocytes % 3.2 %; Neutrophils # 10.9 K/mcL (1.6-8.9); Platelet Count 152 K/mcL (140-400); Red Blood Count 3.38 M/mcL (4.19-5.50); Red Cell Distribution Width 13.5 % (11.5-14.5); Segmented Neutrophils % 92.8 %; White Blood Count 11.7 K/mcL (4.3-11.1)
[2020-10-09] MEDS: Phenylephrine 50 MG in 0.9 % Sodium Chloride 250 ML IVC SCH (19:04)
[2020-10-09 19:14] LABS: Troponin I < 0.03 ng/mL (< 0.04)
[2020-10-09 19:27] LABS: BUN/Creatinine Ratio 23 (6-26); Blood Urea Nitrogen 10 mg/dL (8-23); Carbon Dioxide 28 mEq/L (23-29); Chloride 98 mEq/L (98-107); Glucose 178 mg/dL (70-105); Osmolality,Calculated 281 (280-300); Potassium 4.2 mEq/L (3.5-5.1); Sodium 134 mEq/L (136-145); eGFR For African Americans > 60 (> 60); eGFR For Non-African Americans > 60 (> 60)
[2020-10-09] MEDS: Chlorhexidine Rinse 15 ML MOUTHWASH MM SCH (20:11)
[2020-10-10] MEDS: Dexmedetomidine HCl 400 MCG/100 ML MLS IVC SCH ×3 (00:13→20:59)
[2020-10-10] MEDS: Valproic Acid INJ 250 MG in 0.9 % Sodium Chloride 100 ML IVPB SCH ×3 (03:15→14:04)
[2020-10-10] MEDS: Artificial Tears SOLN 15 ML BOTTLE BOTH EYES SCH ×6 (03:16→23:18)
[2020-10-10 03:28] LABS: Basophils % 0.1 %
[2020-10-10 03:30] LABS: Hematocrit 29.4 % (37.5-50.1); Hemoglobin 9.7 g/dL (12.9-16.9); Immature Granulocytes % 0.4 % (0-4); Immature Platelets 6.5 % (1.1-6.1); Lymphocytes # 0.7 K/mcL (0.6-4.6); Lymphocytes % 7.2 %; Mean Corpuscular Hemoglobin 29.8 pg (28.0-33.3); Mean Corpuscular Volume 90.5 fL (83.0-100.0); Mean Platelet Volume 10.8 fL (9.4-12.4); Monocytes # 0.4 K/mcL (0.0-1.3); Neutrophils # 8.1 K/mcL (1.6-8.9); Platelet Count 144 K/mcL (140-400); Red Blood Count 3.25 M/mcL (4.19-5.50); Red Cell Distribution Width 13.5 % (11.5-14.5); Segmented Neutrophils % 88.3 %; White Blood Count 9.2 K/mcL (4.3-11.1)
[2020-10-10 03:38] LABS: INR 1.2; Prothrombin Time 14.1 Seconds (9.4-12.1)
[2020-10-10 03:52] LABS: Alanine Aminotransferase 29 Units/L (7-52); Albumin 2.9 g/dL (3.5-5.7); Albumin/Globulin Ratio 1.3 (1.1-2.2); Alkaline Phosphatase 114 Units/L (34-104); Aspartate Amino Transferase 40 Units/L (13-39); BUN/Creatinine Ratio 44 (6-26); Bilirubin,Direct 0.3 mg/dL (0.0-0.2); Bilirubin,Indirect 0.3 mg/dL (0.0-1.0); Bilirubin,Total 0.6 mg/dL (0.3-1.0); Blood Urea Nitrogen 12 mg/dL (8-23); Calcium 9.4 mg/dL (8.6-10.3); Carbon Dioxide 29 mEq/L (23-29); Chloride 101 mEq/L (98-107); Globulin 2.2 g/dL (2.4-3.5); Glucose 139 mg/dL (70-105); Magnesium 1.6 mg/dL (1.6-2.6); Osmolality,Calculated 282 (280-300); Phosphorous 2.4 mg/dL (2.7-4.5); Potassium 3.9 mEq/L (3.5-5.1); Sodium 135 mEq/L (136-145); Total Protein 5.1 g/dL (6.4-8.9); eGFR For African Americans > 60 (> 60); eGFR For Non-African Americans > 60 (> 60)
[2020-10-10] MEDS: Insulin LISPRO 300 UNITS/3 ML VIAL SUBQ SCH ×6 (03:59→23:18)
[2020-10-10 05:02] LABS: ABG Base Excess 5 mEq/L (-2 to 3); ABG HCO3 30 mEq/L (21-27); ABG Oxygen Saturation 99 % (95-98); ABG PCO2 45 mmHg (35-45); ABG PH 7.44 pH Units (7.32-7.45); ABG PO2 119 mmHg (85-104); ABG TCO2 31 mEq/L (20-26); Blood Gas VT 400 cc
[2020-10-10] MEDS: *HR* Enoxaparin 40 MG/0.4 ML SYRINGE SQ SCH (05:21)
[2020-10-10] MEDS: Cholecalciferol (D-3) 1,000 UNIT (25MCG) TABLET PO SCH (08:07)
[2020-10-10] MEDS: cloZAPine 100 MG TABLET PO SCH ×2 (08:07→20:36)
[2020-10-10] MEDS: Pantoprazole 40 MG VIAL IVP SCH (08:07)
[2020-10-10] MEDS: Chlorhexidine Rinse 15 ML MOUTHWASH MM SCH ×2 (08:07→20:36)
[2020-10-10] MEDS: Remdesivir 100 MG in 0.9 % Sodium Chloride 100 ML IVPB SCH (08:52)
[2020-10-10] MEDS: FentaNYL (PF) 1,000 MCG/100 ML IV.SOLN IVC SCH ×2 (08:55→17:47)
[2020-10-10] MEDS: Potassium Chloride 20 MEQ in D5% in Water 1,000 ML IVC SCH (11:25)
[2020-10-10] MEDS ORDERED: Albumin Human 5% 12.5 GM/250 ML IV.SOLN IVPB ONE ×2 (11:29→16:15)
[2020-10-10] MEDS: Norepinephrine 4 MG/254 ML IV.SOLN IVC SCH (14:04)
[2020-10-10] MEDS: Phenylephrine 50 MG in 0.9 % Sodium Chloride 250 ML IVC SCH ×2 (14:05→16:55)
[2020-10-10] MEDS: Valproic Acid Oral Soln 250 MG/5 ML UDC GTUBE SCH ×2 (16:55→23:01)
[2020-10-10] MEDS ORDERED: Clinimix E 5%-15% SOLUTION 2,000 ML with MVI, adult with vitamin K 10 ML IVC SCH (17:00)
[2020-10-10 18:52] LABS: Bacteria,Urine Few per hpf (None-Few); Bilirubin,Urine Negative (Negative); Blood,Urine Negative (Negative); Clarity,Urine Clear (Clear); Color,Urine Yellow (Yellow); Glucose,Urine (UA) Normal (Normal); Hyaline Casts,Urine Few per lpf (None Seen); Ketones,Urine Negative (Negative); Leukocyte Esterase,Urine Negative (Negative); Mucus,Urine Many per lpf (None-Few); Nitrite,Urine Negative (Negative); Protein,Urine 50 mg/dL (Neg-Trace); Specific Gravity,Urine > 1.030 (1.010-1.025); Urobilinogen,Urine Normal (Normal)
[2020-10-10] MEDS: Cefepime HCl 2,000 MG in Water for inj. (sterile) 10 ML IVP SCH (23:01)
[2020-10-10] MEDS: MetroNIDAZOLE 500 MG/100 ML 500 MG/100 ML BAG IVPB SCH (23:01)
[2020-10-11] MEDS: FentaNYL (PF) 1,000 MCG/100 ML IV.SOLN IVC SCH ×3 (01:06→18:37)
[2020-10-11] MEDS: Dexmedetomidine HCl 400 MCG/100 ML MLS IVC SCH ×3 (03:34→22:50)
[2020-10-11] MEDS: Artificial Tears SOLN 15 ML BOTTLE BOTH EYES SCH ×6 (03:49→23:25)
[2020-10-11] MEDS: Insulin LISPRO 300 UNITS/3 ML VIAL SUBQ SCH ×6 (03:49→23:47)
[2020-10-11 04:06] LABS: Hematocrit 28.4 % (37.5-50.1); Hemoglobin 9.5 g/dL (12.9-16.9); Immature Granulocytes % 1.1 % (0-4); Lymphocytes % 6.5 %; Mean Corpuscular HGB Conc 33.5 g/dL (31.6-35.5); Mean Corpuscular Hemoglobin 30.7 pg (28.0-33.3); Mean Corpuscular Volume 91.9 fL (83.0-100.0); Mean Platelet Volume 11.4 fL (9.4-12.4); Monocytes % 7.9 %; Platelet Count 163 K/mcL (140-400); Red Blood Count 3.09 M/mcL (4.19-5.50); Segmented Neutrophils % 84.4 %
[2020-10-11 04:07] LABS: Basophils % 0.1 %; Lymphocytes # 0.8 K/mcL (0.6-4.6); Neutrophils # 10.9 K/mcL (1.6-8.9)
[2020-10-11 04:17] LABS: Alanine Aminotransferase 22 Units/L (7-52); Albumin 2.9 g/dL (3.5-5.7); Albumin/Globulin Ratio 1.3 (1.1-2.2); Alkaline Phosphatase 96 Units/L (34-104); Aspartate Amino Transferase 16 Units/L (13-39); BUN/Creatinine Ratio 45 (6-26); Bilirubin,Total 0.4 mg/dL (0.3-1.0); Blood Urea Nitrogen 18 mg/dL (8-23); Calcium 9.3 mg/dL (8.6-10.3); Carbon Dioxide 31 mEq/L (23-29); Chloride 101 mEq/L (98-107); Globulin 2.2 g/dL (2.4-3.5); Glucose 147 mg/dL (70-105); Magnesium 1.9 mg/dL (1.6-2.6); Osmolality,Calculated 285 (280-300); Phosphorous 2.8 mg/dL (2.7-4.5); Sodium 135 mEq/L (136-145); Total Protein 5.1 g/dL (6.4-8.9); eGFR For African Americans > 60 (> 60); eGFR For Non-African Americans > 60 (> 60)
[2020-10-11 04:18] LABS: Albumin 2.9 g/dL (3.5-5.7); Albumin/Globulin Ratio 1.3 (1.1-2.2); Bilirubin,Direct 0.1 mg/dL (0.0-0.2); Bilirubin,Indirect 0.2 mg/dL (0.0-1.0); Bilirubin,Total 0.3 mg/dL (0.3-1.0); Globulin 2.2 g/dL (2.4-3.5); Total Protein 5.1 g/dL (6.4-8.9)
[2020-10-11 05:11] LABS: ABG Base Excess 6 mEq/L (-2 to 3); ABG HCO3 31 mEq/L (21-27); ABG Oxygen Saturation 97 % (95-98); ABG PCO2 44 mmHg (35-45); ABG PH 7.45 pH Units (7.32-7.45); ABG PO2 87 mmHg (85-104); ABG TCO2 32 mEq/L (20-26); Blood Gas VT 400 cc
[2020-10-11] MEDS: Valproic Acid Oral Soln 250 MG/5 ML UDC GTUBE SCH ×4 (05:51→23:25)
[2020-10-11] MEDS: *HR* Enoxaparin 40 MG/0.4 ML SYRINGE SQ SCH (05:51)
[2020-10-11] MEDS: MetroNIDAZOLE 500 MG/100 ML 500 MG/100 ML BAG IVPB SCH ×3 (07:15→23:24)
[2020-10-11] MEDS: Remdesivir 100 MG in 0.9 % Sodium Chloride 100 ML IVPB SCH (07:15)
[2020-10-11] MEDS: Dexamethasone Sodium Phos/PF 10 MG/ML VIAL IVP SCH (07:16)
[2020-10-11] MEDS: Chlorhexidine Rinse 15 ML MOUTHWASH MM SCH ×2 (07:16→19:48)
[2020-10-11] MEDS: Cefepime HCl 2,000 MG in Water for inj. (sterile) 10 ML IVP SCH ×3 (07:16→23:25)
[2020-10-11] MEDS: Cholecalciferol (D-3) 1,000 UNIT (25MCG) TABLET PO SCH (07:16)
[2020-10-11] MEDS: cloZAPine 100 MG TABLET PO SCH ×2 (07:17→19:48)
[2020-10-11] MEDS: Pantoprazole 40 MG VIAL IVP SCH (07:17)
[2020-10-11 14:56] LABS: Valproate Free 13 ug/mL (7-23); Valproate Total 65 ug/mL (50-125)
[2020-10-11] MEDS: Norepinephrine 4 MG/254 ML IV.SOLN IVC SCH (16:03)
[2020-10-11] MEDS ORDERED: Clinimix E 5%-15% SOLUTION 2,000 ML with MVI, adult with vitamin K 10 ML IVC SCH (17:00)
[2020-10-12] MEDS: FentaNYL (PF) 1,000 MCG/100 ML IV.SOLN IVC SCH ×3 (02:12→17:45)
[2020-10-12] MEDS: Artificial Tears SOLN 15 ML BOTTLE BOTH EYES SCH ×6 (03:44→23:09)
[2020-10-12] MEDS: Insulin LISPRO 300 UNITS/3 ML VIAL SUBQ SCH ×6 (03:46→23:48)
[2020-10-12 03:48] LABS: Basophils % 0.2 %; Hematocrit 28.8 % (37.5-50.1); Hemoglobin 9.3 g/dL (12.9-16.9); Immature Granulocytes % 1.5 % (0-4); Lymphocytes # 0.9 K/mcL (0.6-4.6); Lymphocytes % 8.1 %; Mean Corpuscular HGB Conc 32.3 g/dL (31.6-35.5); Mean Corpuscular Hemoglobin 30.3 pg (28.0-33.3); Mean Corpuscular Volume 93.8 fL (83.0-100.0); Mean Platelet Volume 10.7 fL (9.4-12.4); Monocytes # 0.8 K/mcL (0.0-1.3); Monocytes % 7.3 %; Neutrophils # 8.9 K/mcL (1.6-8.9); Platelet Count 161 K/mcL (140-400); Red Blood Count 3.07 M/mcL (4.19-5.50); Red Cell Distribution Width 14.2 % (11.5-14.5); Segmented Neutrophils % 82.9 %; White Blood Count 10.8 K/mcL (4.3-11.1)
[2020-10-12 04:08] LABS: Magnesium 1.7 mg/dL (1.6-2.6); Phosphorous 2.9 mg/dL (2.7-4.5)
[2020-10-12 04:09] LABS: Albumin 2.6 g/dL (3.5-5.7); Albumin/Globulin Ratio 1.2 (1.1-2.2); Bilirubin,Direct 0.1 mg/dL (0.0-0.2); Bilirubin,Indirect 0.3 mg/dL (0.0-1.0); Bilirubin,Total 0.4 mg/dL (0.3-1.0); Globulin 2.1 g/dL (2.4-3.5); Total Protein 4.7 g/dL (6.4-8.9)
[2020-10-12 04:10] LABS: Alanine Aminotransferase 22 Units/L (7-52); Albumin 2.6 g/dL (3.5-5.7); Albumin/Globulin Ratio 1.2 (1.1-2.2); Alkaline Phosphatase 84 Units/L (34-104); Aspartate Amino Transferase 17 Units/L (13-39); BUN/Creatinine Ratio 59 (6-26); Bilirubin,Total 0.4 mg/dL (0.3-1.0); Blood Urea Nitrogen 20 mg/dL (8-23); Calcium 9.2 mg/dL (8.6-10.3); Carbon Dioxide 30 mEq/L (23-29); Chloride 103 mEq/L (98-107); Globulin 2.1 g/dL (2.4-3.5); Glucose 156 mg/dL (70-105); Osmolality,Calculated 284 (280-300); Potassium 4.3 mEq/L (3.5-5.1); Sodium 134 mEq/L (136-145); Total Protein 4.7 g/dL (6.4-8.9); eGFR For African Americans > 60 (> 60); eGFR For Non-African Americans > 60 (> 60)
[2020-10-12 05:05] LABS: ABG Base Excess 5 mEq/L (-2 to 3); ABG HCO3 30 mEq/L (21-27); ABG Oxygen Saturation 96 % (95-98); ABG PCO2 45 mmHg (35-45); ABG PH 7.42 pH Units (7.32-7.45); ABG PO2 83 mmHg (85-104); ABG TCO2 31 mEq/L (20-26); Blood Gas VT 400 cc
[2020-10-12] MEDS: *HR* Enoxaparin 40 MG/0.4 ML SYRINGE SQ SCH (05:11)
[2020-10-12] MEDS: Valproic Acid Oral Soln 250 MG/5 ML UDC GTUBE SCH ×4 (05:11→23:09)
[2020-10-12] MEDS: Remdesivir 100 MG in 0.9 % Sodium Chloride 100 ML IVPB SCH (07:09)
[2020-10-12] MEDS: Chlorhexidine Rinse 15 ML MOUTHWASH MM SCH ×2 (07:10→19:35)
[2020-10-12] MEDS: MetroNIDAZOLE 500 MG/100 ML 500 MG/100 ML BAG IVPB SCH (07:10)
[2020-10-12] MEDS: Cefepime HCl 2,000 MG in Water for inj. (sterile) 10 ML IVP SCH (07:10)
[2020-10-12] MEDS: Cholecalciferol (D-3) 1,000 UNIT (25MCG) TABLET PO SCH (07:11)
[2020-10-12] MEDS: Pantoprazole 40 MG VIAL IVP SCH (07:11)
[2020-10-12] MEDS: Dexamethasone Sodium Phos/PF 10 MG/ML VIAL IVP SCH (07:11)
[2020-10-12] MEDS: cloZAPine 100 MG TABLET PO SCH ×2 (07:11→19:36)
[2020-10-12] MEDS: Dexmedetomidine HCl 400 MCG/100 ML MLS IVC SCH ×3 (07:16→22:01)
[2020-10-12] MEDS ORDERED: Furosemide 20 MG/2 ML VIAL IVP ONE ×2 (11:32→18:44)
[2020-10-12 12:18] LABS: Valproate % Free 20 % (5-18)
[2020-10-12] MEDS: Ampicillin/Sulbactam 3,000 MG in 0.9 % Sodium Chloride Mini Bag 100 ML IVPB SCH ×3 (12:44→23:09)
[2020-10-12] MEDS: Phenylephrine 50 MG in 0.9 % Sodium Chloride 250 ML IVC SCH (15:20)
[2020-10-12] MEDS: Norepinephrine 4 MG/254 ML IV.SOLN IVC SCH (15:49)
[2020-10-12] MEDS ORDERED: Clinimix E 5%-15% SOLUTION 2,000 ML with MVI, adult with vitamin K 10 ML IVC SCH (17:00)
[2020-10-12] MEDS ORDERED: 0.9 % Sodium Chloride Mini Bag 100 ML ONE (18:39)
[2020-10-13] MEDS: FentaNYL (PF) 1,000 MCG/100 ML IV.SOLN IVC SCH ×3 (00:58→20:10)
[2020-10-13 03:26] LABS: Basophils # 0.1 K/mcL (0.0-0.2); Basophils % 0.5 %; Hematocrit 30.7 % (37.5-50.1); Hemoglobin 9.8 g/dL (12.9-16.9); Immature Granulocytes % 2.3 % (0-4); Lymphocytes # 0.8 K/mcL (0.6-4.6); Mean Corpuscular HGB Conc 31.9 g/dL (31.6-35.5); Mean Corpuscular Volume 93.9 fL (83.0-100.0); Mean Platelet Volume 10.7 fL (9.4-12.4); Monocytes # 0.8 K/mcL (0.0-1.3); Monocytes % 6.9 %; Neutrophils # 9.3 K/mcL (1.6-8.9); Nucleated Red Blood Cells 0.2 /100 WBC (0); Platelet Count 177 K/mcL (140-400); Red Blood Count 3.27 M/mcL (4.19-5.50); Red Cell Distribution Width 14.1 % (11.5-14.5); Segmented Neutrophils % 83.3 %; White Blood Count 11.1 K/mcL (4.3-11.1)
[2020-10-13 03:43] LABS: Albumin 2.7 g/dL (3.5-5.7); Albumin/Globulin Ratio 1.2 (1.1-2.2); Bilirubin,Direct 0.1 mg/dL (0.0-0.2); Bilirubin,Indirect 0.3 mg/dL (0.0-1.0); Bilirubin,Total 0.4 mg/dL (0.3-1.0); Globulin 2.2 g/dL (2.4-3.5); Total Protein 4.9 g/dL (6.4-8.9)
[2020-10-13 03:45] LABS: BUN/Creatinine Ratio 52 (6-26); Blood Urea Nitrogen 24 mg/dL (8-23); Calcium 9.6 mg/dL (8.6-10.3); Carbon Dioxide 32 mEq/L (23-29); Chloride 102 mEq/L (98-107); Glucose 162 mg/dL (70-105); Magnesium 1.9 mg/dL (1.6-2.6); Osmolality,Calculated 288 (280-300); Phosphorous 2.8 mg/dL (2.7-4.5); Potassium 4.5 mEq/L (3.5-5.1); Sodium 135 mEq/L (136-145); eGFR For African Americans > 60 (> 60); eGFR For Non-African Americans > 60 (> 60)
[2020-10-13] MEDS: Dexmedetomidine HCl 400 MCG/100 ML MLS IVC SCH ×3 (05:05→21:42)
[2020-10-13] MEDS: Insulin LISPRO 300 UNITS/3 ML VIAL SUBQ SCH ×5 (05:06→21:00)
[2020-10-13] MEDS: Artificial Tears SOLN 15 ML BOTTLE BOTH EYES SCH ×5 (05:07→20:25)
[2020-10-13] MEDS: *HR* Enoxaparin 40 MG/0.4 ML SYRINGE SQ SCH (05:22)
[2020-10-13] MEDS: Valproic Acid Oral Soln 250 MG/5 ML UDC GTUBE SCH ×3 (05:22→16:54)
[2020-10-13] MEDS: Ampicillin/Sulbactam 3,000 MG in 0.9 % Sodium Chloride Mini Bag 100 ML IVPB SCH ×3 (05:22→16:54)
[2020-10-13 05:39] LABS: ABG Base Excess 6 mEq/L (-2 to 3); ABG HCO3 32 mEq/L (21-27); ABG Oxygen Saturation 96 % (95-98); ABG PCO2 54 mmHg (35-45); ABG PH 7.38 pH Units (7.32-7.45); ABG PO2 84 mmHg (85-104); ABG TCO2 34 mEq/L (20-26); Blood Gas Modality AF; Blood Gas VT 400 cc
[2020-10-13] MEDS: Pantoprazole 40 MG VIAL IVP SCH (08:01)
[2020-10-13] MEDS: cloZAPine 100 MG TABLET PO SCH ×4 (08:02→21:50)
[2020-10-13] MEDS: Dexamethasone Sodium Phos/PF 10 MG/ML VIAL IVP SCH (08:02)
[2020-10-13] MEDS: Remdesivir 100 MG in 0.9 % Sodium Chloride 100 ML IVPB SCH (08:03)
[2020-10-13] MEDS: Chlorhexidine Rinse 15 ML MOUTHWASH MM SCH ×2 (08:05→21:43)
[2020-10-13] MEDS: Cholecalciferol (D-3) 1,000 UNIT (25MCG) TABLET PO SCH (08:28)
[2020-10-13] MEDS ORDERED: Furosemide 40 MG/4 ML VIAL IVP ONE (08:42)
[2020-10-13] MEDS: Norepinephrine 4 MG/254 ML IV.SOLN IVC SCH (15:51)
[2020-10-13] MEDS: Phenylephrine 50 MG in 0.9 % Sodium Chloride 250 ML IVC SCH (15:51)
[2020-10-13] MEDS ORDERED: Clinimix E 5%-15% SOLUTION 2,000 ML with MVI, adult with vitamin K 10 ML IVC SCH (17:00)
[2020-10-14] MEDS: Ampicillin/Sulbactam 3,000 MG in 0.9 % Sodium Chloride Mini Bag 100 ML IVPB SCH ×4 (00:53→17:34)
[2020-10-14] MEDS: Valproic Acid Oral Soln 250 MG/5 ML UDC GTUBE SCH ×4 (00:53→17:33)
[2020-10-14] MEDS: Artificial Tears SOLN 15 ML BOTTLE BOTH EYES SCH ×6 (00:54→20:48)
[2020-10-14] MEDS: Insulin LISPRO 300 UNITS/3 ML VIAL SUBQ SCH ×6 (00:56→21:35)
[2020-10-14 04:13] LABS: ABG Base Excess 9 mEq/L (-2 to 3); ABG HCO3 37 mEq/L (21-27); ABG Oxygen Saturation 95 % (95-98); ABG PCO2 70 mmHg (35-45); ABG PH 7.33 pH Units (7.32-7.45); ABG PO2 87 mmHg (85-104); ABG TCO2 39 mEq/L (20-26); Blood Gas VT 400 cc
[2020-10-14] MEDS: *HR* Enoxaparin 40 MG/0.4 ML SYRINGE SQ SCH (05:12)
[2020-10-14 05:41] LABS: Basophils # 0.1 K/mcL (0.0-0.2); Basophils % 0.9 %; Hematocrit 32.8 % (37.5-50.1); Hemoglobin 10.6 g/dL (12.9-16.9); Immature Granulocytes % 4.7 % (0-4); Lymphocytes % 6.6 %; Mean Corpuscular HGB Conc 32.3 g/dL (31.6-35.5); Mean Corpuscular Hemoglobin 30.9 pg (28.0-33.3); Mean Corpuscular Volume 95.6 fL (83.0-100.0); Mean Platelet Volume 10.2 fL (9.4-12.4); Monocytes # 1.5 K/mcL (0.0-1.3); Monocytes % 10.3 %; Neutrophils # 11.6 K/mcL (1.6-8.9); Nucleated Red Blood Cells 0.2 /100 WBC (0); Platelet Count 189 K/mcL (140-400); Red Blood Count 3.43 M/mcL (4.19-5.50); Red Cell Distribution Width 13.9 % (11.5-14.5); Segmented Neutrophils % 77.5 %; White Blood Count 14.9 K/mcL (4.3-11.1)
[2020-10-14 05:59] LABS: Albumin 2.6 g/dL (3.5-5.7); Albumin/Globulin Ratio 1.2 (1.1-2.2); Bilirubin,Direct 0.1 mg/dL (0.0-0.2); Bilirubin,Indirect 0.3 mg/dL (0.0-1.0); Bilirubin,Total 0.4 mg/dL (0.3-1.0); Globulin 2.1 g/dL (2.4-3.5); Total Protein 4.7 g/dL (6.4-8.9)
[2020-10-14 06:02] LABS: BUN/Creatinine Ratio 64 (6-26); Blood Urea Nitrogen 23 mg/dL (8-23); Calcium 9.6 mg/dL (8.6-10.3); Carbon Dioxide 33 mEq/L (23-29); Chloride 100 mEq/L (98-107); Glucose 159 mg/dL (70-105); Osmolality,Calculated 289 (280-300); Phosphorous 2.5 mg/dL (2.7-4.5); Potassium 4.4 mEq/L (3.5-5.1); Sodium 136 mEq/L (136-145); eGFR For African Americans > 60 (> 60); eGFR For Non-African Americans > 60 (> 60)
[2020-10-14] MEDS: Dexmedetomidine HCl 400 MCG/100 ML MLS IVC SCH ×2 (06:25→15:33)
[2020-10-14] MEDS: Pantoprazole 40 MG VIAL IVP SCH (07:48)
[2020-10-14] MEDS: Dexamethasone Sodium Phos/PF 10 MG/ML VIAL IVP SCH (07:49)
[2020-10-14] MEDS: FentaNYL (PF) 1,000 MCG/100 ML IV.SOLN IVC SCH ×2 (07:51→17:51)
[2020-10-14] MEDS: cloZAPine 100 MG TABLET PO SCH ×2 (07:51→20:49)
[2020-10-14] MEDS: Cholecalciferol (D-3) 1,000 UNIT (25MCG) TABLET PO SCH (07:51)
[2020-10-14] MEDS ORDERED: 0.9 % Sodium Chloride 1,000 ML ONE (08:23)
[2020-10-14] MEDS: Chlorhexidine Rinse 15 ML MOUTHWASH MM SCH ×2 (09:49→20:47)
[2020-10-14] MEDS ORDERED: Furosemide 40 MG in 0.9 % Sodium Chloride 50 ML IV SCH (15:00)
[2020-10-14] MEDS ORDERED: Furosemide 40 MG/4 ML VIAL IVP SCH (15:00)
[2020-10-14] MEDS ORDERED: Clinimix E 5%-15% SOLUTION 2,000 ML with MVI, adult with vitamin K 10 ML, ZN/CU/MN/SE... IVC SCH (17:00)
[2020-10-14] MEDS: Furosemide 40 MG/4 ML VIAL IVP SCH (20:47)
[2020-10-15] MEDS: Artificial Tears SOLN 15 ML BOTTLE BOTH EYES SCH ×7 (00:19→23:14)
[2020-10-15] MEDS: Ampicillin/Sulbactam 3,000 MG in 0.9 % Sodium Chloride Mini Bag 100 ML IVPB SCH ×3 (00:19→12:22)
[2020-10-15] MEDS: Valproic Acid Oral Soln 250 MG/5 ML UDC GTUBE SCH ×5 (00:19→23:14)
[2020-10-15 04:10] LABS: ABG Base Excess 7 mEq/L (-2 to 3); ABG HCO3 34 mEq/L (21-27); ABG Oxygen Saturation 83 % (95-98); ABG PCO2 63 mmHg (35-45); ABG PH 7.34 pH Units (7.32-7.45); ABG PO2 52 mmHg (85-104); ABG TCO2 36 mEq/L (20-26); Blood Gas VT 400 cc
[2020-10-15 04:12] LABS: Basophils % 0.1 %; Hematocrit 30.9 % (37.5-50.1); Hemoglobin 9.8 g/dL (12.9-16.9); Lymphocytes % 12.6 %; Mean Corpuscular HGB Conc 31.7 g/dL (31.6-35.5); Mean Corpuscular Hemoglobin 30.6 pg (28.0-33.3); Mean Corpuscular Volume 96.6 fL (83.0-100.0); Mean Platelet Volume 10.5 fL (9.4-12.4); Monocytes # 0.5 K/mcL (0.0-1.3); Monocytes % 6.8 %; Neutrophils # 5.3 K/mcL (1.6-8.9); Nucleated Red Blood Cells 0.5 /100 WBC (0); Platelet Count 175 K/mcL (140-400); Red Cell Distribution Width 14.2 % (11.5-14.5); Segmented Neutrophils % 70.5 %; White Blood Count 7.5 K/mcL (4.3-11.1)
[2020-10-15] MEDS: FentaNYL (PF) 1,000 MCG/100 ML IV.SOLN IVC SCH ×3 (04:20→21:37)
[2020-10-15 04:31] LABS: ABG Ionized Calcium 1.42 mmol/L (1.15-1.35)
[2020-10-15 04:41] LABS: Platelet Estimate Normal (Normal)
[2020-10-15 05:01] LABS: BUN/Creatinine Ratio 90 (6-26); Blood Urea Nitrogen 27 mg/dL (8-23); Calcium 8.2 mg/dL (8.6-10.3); Carbon Dioxide 30 mEq/L (23-29); Chloride 105 mEq/L (98-107); Glucose 121 mg/dL (70-105); Magnesium 1.6 mg/dL (1.6-2.6); Osmolality,Calculated 296 (280-300); Potassium 3.8 mEq/L (3.5-5.1); Sodium 140 mEq/L (136-145); eGFR For African Americans > 60 (> 60); eGFR For Non-African Americans > 60 (> 60)
[2020-10-15] MEDS: Insulin LISPRO 300 UNITS/3 ML VIAL SUBQ SCH ×7 (05:04→23:51)
[2020-10-15] MEDS: *HR* Enoxaparin 40 MG/0.4 ML SYRINGE SQ SCH (05:48)
[2020-10-15] MEDS: Chlorhexidine Rinse 15 ML MOUTHWASH MM SCH ×2 (08:31→20:26)
[2020-10-15] MEDS: Dexamethasone Sodium Phos/PF 10 MG/ML VIAL IVP SCH (08:31)
[2020-10-15] MEDS: cloZAPine 100 MG TABLET PO SCH ×2 (08:31→20:26)
[2020-10-15] MEDS: Pantoprazole 40 MG VIAL IVP SCH (08:31)
[2020-10-15] MEDS: Furosemide 40 MG/4 ML VIAL IVP SCH (08:31)
[2020-10-15] MEDS: Cholecalciferol (D-3) 1,000 UNIT (25MCG) TABLET PO SCH (08:32)
[2020-10-15] MEDS ORDERED: Calcium Gluconate 1gm/50mL 1 GM/50 ML BAG IVPB PRN (10:51)
[2020-10-15] MEDS: Dexmedetomidine HCl 400 MCG/100 ML MLS IVC SCH ×4 (12:47→22:30)
[2020-10-15] MEDS: Norepinephrine 4 MG/254 ML IV.SOLN IVC SCH (13:23)
[2020-10-15] MEDS: Phenylephrine 50 MG in 0.9 % Sodium Chloride 250 ML IVC SCH (13:49)
[2020-10-15] MEDS: Cefepime HCl 2,000 MG in Water for inj. (sterile) 20 ML IVP SCH (16:30)
[2020-10-15] MEDS: Albumin Human 5% 12.5 GM/250 ML IV.SOLN IVC SCH ×2 (16:31→20:27)
[2020-10-15] MEDS ORDERED: Clinimix E 5%-15% SOLUTION 2,000 ML with MVI, adult with vitamin K 10 ML, ZN/CU/MN/SE... IVC SCH (17:00)
[2020-10-16] MEDS: Cefepime HCl 2,000 MG in Water for inj. (sterile) 20 ML IVP SCH ×3 (03:15→18:02)
[2020-10-16] MEDS: FentaNYL (PF) 1,000 MCG/100 ML IV.SOLN IVC SCH ×3 (03:56→20:12)
[2020-10-16] MEDS: Artificial Tears SOLN 15 ML BOTTLE BOTH EYES SCH ×5 (04:10→21:21)
[2020-10-16] MEDS: Insulin LISPRO 300 UNITS/3 ML VIAL SUBQ SCH ×5 (04:11→21:30)
[2020-10-16 04:37] LABS: ABG Base Excess 8 mEq/L (-2 to 3); ABG HCO3 35 mEq/L (21-27); ABG Oxygen Saturation 95 % (95-98); ABG PCO2 57 mmHg (35-45); ABG PH 7.39 pH Units (7.32-7.45); ABG PO2 76 mmHg (85-104); ABG TCO2 36 mEq/L (20-26); Blood Gas Modality AF; Blood Gas VT 400 cc
[2020-10-16 04:50] LABS: Hematocrit 29.3 % (37.5-50.1); Hemoglobin 9.3 g/dL (12.9-16.9); Mean Corpuscular HGB Conc 31.7 g/dL (31.6-35.5); Mean Corpuscular Hemoglobin 30.6 pg (28.0-33.3); Mean Corpuscular Volume 96.4 fL (83.0-100.0); Mean Platelet Volume 10.5 fL (9.4-12.4); Platelet Count 143 K/mcL (140-400); Red Blood Count 3.04 M/mcL (4.19-5.50); Red Cell Distribution Width 14.6 % (11.5-14.5); White Blood Count 7.6 K/mcL (4.3-11.1)
[2020-10-16 04:53] LABS: VBG Ionized Calcium 1.44 mmol/L (1.15-1.35)
[2020-10-16 05:11] LABS: Carbon Dioxide 37 mEq/L (23-29); Chloride 99 mEq/L (98-107); Glucose 152 mg/dL (70-105); Phosphorous 2.2 mg/dL (2.7-4.5); Potassium 4.7 mEq/L (3.5-5.1); Sodium 135 mEq/L (136-145); Triglycerides 112 mg/dL (< 150); eGFR For African Americans > 60 (> 60); eGFR For Non-African Americans > 60 (> 60)
[2020-10-16] MEDS: Dexmedetomidine HCl 400 MCG/100 ML MLS IVC SCH ×3 (05:15→18:46)
[2020-10-16 05:20] LABS: BUN/Creatinine Ratio 116 (6-26); Blood Urea Nitrogen 36 mg/dL (8-23); Calcium 9.3 mg/dL (8.6-10.3); Osmolality,Calculated 291 (280-300)
[2020-10-16] MEDS: *HR* Enoxaparin 40 MG/0.4 ML SYRINGE SQ SCH (05:30)
[2020-10-16] MEDS: Valproic Acid Oral Soln 250 MG/5 ML UDC GTUBE SCH ×3 (05:30→18:02)
[2020-10-16] MEDS: Chlorhexidine Rinse 15 ML MOUTHWASH MM SCH ×2 (08:41→21:19)
[2020-10-16] MEDS: Pantoprazole 40 MG VIAL IVP SCH (08:41)
[2020-10-16] MEDS: Cholecalciferol (D-3) 1,000 UNIT (25MCG) TABLET PO SCH (08:41)
[2020-10-16] MEDS: Dexamethasone Sodium Phos/PF 10 MG/ML VIAL IVP SCH (08:42)
[2020-10-16] MEDS: cloZAPine 100 MG TABLET PO SCH ×2 (08:54→21:19)
[2020-10-16] MEDS: methylPREDNISolone 125 MG/2 ML VIAL IVP SCH ×2 (12:00→18:02)
[2020-10-16] MEDS ORDERED: *HR* Dextrose 50 % in Water (Syg) 50 ML SYRINGE IVP PRN (12:45)
[2020-10-16] MEDS ORDERED: Clinimix E 5%-15% SOLUTION 2,000 ML with MVI, adult with vitamin K 10 ML IVC SCH (17:00)
[2020-10-16] MEDS: Norepinephrine 4 MG/254 ML IV.SOLN IVC SCH (17:46)
[2020-10-16] MEDS: Docusate Oral Soln 100 MG/10 ML UDC GTUBE SCH (21:19)
[2020-10-16] MEDS: Phenylephrine 50 MG in 0.9 % Sodium Chloride 250 ML IVC SCH (21:20)
[2020-10-17] MEDS: Valproic Acid Oral Soln 250 MG/5 ML UDC GTUBE SCH ×4 (00:09→17:00)
[2020-10-17] MEDS: methylPREDNISolone 125 MG/2 ML VIAL IVP SCH ×4 (00:09→17:00)
[2020-10-17] MEDS: Insulin LISPRO 300 UNITS/3 ML VIAL SUBQ SCH ×6 (00:41→21:07)
[2020-10-17] MEDS: Cefepime HCl 2,000 MG in Water for inj. (sterile) 20 ML IVP SCH ×3 (03:23→17:00)
[2020-10-17] MEDS: Artificial Tears SOLN 15 ML BOTTLE BOTH EYES SCH ×6 (03:27→21:07)
[2020-10-17 03:49] LABS: Hemoglobin 9.8 g/dL (12.9-16.9); Mean Corpuscular HGB Conc 30.6 g/dL (31.6-35.5); Mean Corpuscular Volume 97.9 fL (83.0-100.0); Mean Platelet Volume 10.3 fL (9.4-12.4); Nucleated Red Blood Cells 0.2 /100 WBC (0); Platelet Count 149 K/mcL (140-400); Red Blood Count 3.27 M/mcL (4.19-5.50); Red Cell Distribution Width 14.6 % (11.5-14.5); White Blood Count 8.2 K/mcL (4.3-11.1)
[2020-10-17] MEDS: Dexmedetomidine HCl 400 MCG/100 ML MLS IVC SCH ×2 (03:50→08:15)
[2020-10-17 03:52] LABS: VBG Ionized Calcium 1.44 mmol/L (1.15-1.35)
[2020-10-17] MEDS: FentaNYL (PF) 1,000 MCG/100 ML IV.SOLN IVC SCH (04:00)
[2020-10-17 04:08] LABS: Anisocytosis 1+ (Not Present); Hypochromasia Present (Not Present); Lymphocytes # 1.2 K/mcL (0.6-4.6); Neutrophils # 7.1 K/mcL (1.6-8.9); Platelet Estimate Normal (Normal)
[2020-10-17 04:09] LABS: BUN/Creatinine Ratio 91 (6-26); Blood Urea Nitrogen 31 mg/dL (8-23); Calcium 9.3 mg/dL (8.6-10.3); Carbon Dioxide 35 mEq/L (23-29); Chloride 97 mEq/L (98-107); Glucose 150 mg/dL (70-105); Osmolality,Calculated 285 (280-300); Phosphorous 2.5 mg/dL (2.7-4.5); Potassium 5.4 mEq/L (3.5-5.1); Sodium 133 mEq/L (136-145); eGFR For African Americans > 60 (> 60); eGFR For Non-African Americans > 60 (> 60)
[2020-10-17 04:18] LABS: ABG Base Excess 9 mEq/L (-2 to 3); ABG HCO3 36 mEq/L (21-27); ABG Oxygen Saturation 97 % (95-98); ABG PCO2 62 mmHg (35-45); ABG PH 7.37 pH Units (7.32-7.45); ABG PO2 95 mmHg (85-104); ABG TCO2 38 mEq/L (20-26); Blood Gas VT 400 cc
[2020-10-17] MEDS: *HR* Enoxaparin 40 MG/0.4 ML SYRINGE SQ SCH (05:56)
[2020-10-17] MEDS: Chlorhexidine Rinse 15 ML MOUTHWASH MM SCH ×2 (08:13→21:08)
[2020-10-17] MEDS: cloZAPine 100 MG TABLET PO SCH ×2 (08:13→21:08)
[2020-10-17] MEDS: Docusate Oral Soln 100 MG/10 ML UDC GTUBE SCH ×2 (08:13→21:08)
[2020-10-17] MEDS: Cholecalciferol (D-3) 1,000 UNIT (25MCG) TABLET PO SCH (08:13)
[2020-10-17] MEDS: Pantoprazole 40 MG VIAL IVP SCH (08:14)
[2020-10-17] MEDS: Phenylephrine 50 MG in 0.9 % Sodium Chloride 250 ML IVC SCH ×2 (10:46→15:53)
[2020-10-17] MEDS: Norepinephrine 4 MG/254 ML IV.SOLN IVC SCH ×2 (10:47→15:53)
[2020-10-17] MEDS ORDERED: *HR* Metoprolol 5 MG/5 ML VIAL IVP PRN (10:51)
[2020-10-17] MEDS: Furosemide 40 MG/4 ML VIAL IVP SCH (11:14)
[2020-10-17] MEDS ORDERED: Clinimix 5%-20% SOLUTION 2,000 ML with MVI, adult with vitamin K 10 ML, Sodium Phosph... IVC SCH (17:00)
[2020-10-18] MEDS: methylPREDNISolone 125 MG/2 ML VIAL IVP SCH ×4 (00:32→17:42)
[2020-10-18] MEDS: Valproic Acid Oral Soln 250 MG/5 ML UDC GTUBE SCH ×4 (00:33→17:47)
[2020-10-18] MEDS: Artificial Tears SOLN 15 ML BOTTLE BOTH EYES SCH ×5 (00:33→16:28)
[2020-10-18] MEDS: Insulin LISPRO 300 UNITS/3 ML VIAL SUBQ SCH ×5 (00:34→17:44)
[2020-10-18] MEDS: Cefepime HCl 2,000 MG in Water for inj. (sterile) 20 ML IVP SCH ×3 (02:45→17:42)
[2020-10-18 04:59] LABS: Basophils # 0.1 K/mcL (0.0-0.2); Basophils % 0.6 %; Hematocrit 33.5 % (37.5-50.1); Hemoglobin 10.8 g/dL (12.9-16.9); Immature Granulocytes % 8.3 % (0-4); Lymphocytes % 5.4 %; Mean Corpuscular HGB Conc 32.2 g/dL (31.6-35.5); Mean Corpuscular Hemoglobin 30.3 pg (28.0-33.3); Mean Corpuscular Volume 93.8 fL (83.0-100.0); Mean Platelet Volume 10.9 fL (9.4-12.4); Monocytes # 1.7 K/mcL (0.0-1.3); Monocytes % 9.8 %; Neutrophils # 13.5 K/mcL (1.6-8.9); Nucleated Red Blood Cells 0.3 /100 WBC (0); Platelet Count 154 K/mcL (140-400); Red Blood Count 3.57 M/mcL (4.19-5.50); Red Cell Distribution Width 14.8 % (11.5-14.5); Segmented Neutrophils % 75.9 %
[2020-10-18 05:12] LABS: White Blood Count 17.8 K/mcL (4.3-11.1)
[2020-10-18] MEDS: *HR* Enoxaparin 40 MG/0.4 ML SYRINGE SQ SCH (05:28)
[2020-10-18 06:12] LABS: BUN/Creatinine Ratio 80 (6-26); Blood Urea Nitrogen 28 mg/dL (8-23); Calcium 9.8 mg/dL (8.6-10.3); Carbon Dioxide 31 mEq/L (23-29); Chloride 96 mEq/L (98-107); Glucose 152 mg/dL (70-105); Magnesium 1.7 mg/dL (1.6-2.6); Osmolality,Calculated 284 (280-300); Phosphorous 1.7 mg/dL (2.7-4.5); Potassium 3.7 mEq/L (3.5-5.1); Sodium 133 mEq/L (136-145); eGFR For African Americans > 60 (> 60); eGFR For Non-African Americans > 60 (> 60)
[2020-10-18] MEDS: Pantoprazole 40 MG VIAL IVP SCH (09:06)
[2020-10-18] MEDS: Chlorhexidine Rinse 15 ML MOUTHWASH MM SCH (09:06)
[2020-10-18] MEDS: Furosemide 40 MG/4 ML VIAL IVP SCH (09:07)
[2020-10-18] MEDS: cloZAPine 100 MG TABLET PO SCH (11:31)
[2020-10-18] MEDS: Docusate Oral Soln 100 MG/10 ML UDC GTUBE SCH (11:31)
[2020-10-18] MEDS: Cholecalciferol (D-3) 1,000 UNIT (25MCG) TABLET PO SCH (11:32)
[2020-10-18] MEDS: Potassium Chloride 40 MEQ/200 ML BAG IVPB PRN ×2 (11:33→13:30)
[2020-10-18] MEDS: Phenylephrine 50 MG in 0.9 % Sodium Chloride 250 ML IVC SCH (16:27)
[2020-10-18] MEDS: Norepinephrine 4 MG/254 ML IV.SOLN IVC SCH (16:27)
[2020-10-18] MEDS ORDERED: Clinimix 5%-20% SOLUTION 2,000 ML with MVI, adult with vitamin K 10 ML, Sodium Phosph... IVC SCH (17:00)
[2020-10-19] MEDS: Insulin LISPRO 300 UNITS/3 ML VIAL SUBQ SCH ×6 (01:31→21:19)
[2020-10-19] MEDS: cloZAPine 100 MG TABLET PO SCH ×2 (01:31→10:07)
[2020-10-19] MEDS: Valproic Acid Oral Soln 250 MG/5 ML UDC GTUBE SCH ×2 (01:32→06:14)
[2020-10-19] MEDS: Docusate Oral Soln 100 MG/10 ML UDC GTUBE SCH ×3 (01:32→20:17)
[2020-10-19] MEDS: Cefepime HCl 2,000 MG in Water for inj. (sterile) 20 ML IVP SCH ×3 (02:06→17:00)
[2020-10-19] MEDS: methylPREDNISolone 125 MG/2 ML VIAL IVP SCH ×3 (02:08→16:18)
[2020-10-19] MEDS: *HR* Enoxaparin 40 MG/0.4 ML SYRINGE SQ SCH (06:14)
[2020-10-19] MEDS: Chlorhexidine Rinse 15 ML MOUTHWASH MM SCH ×3 (06:15→20:17)
[2020-10-19] MEDS: Artificial Tears SOLN 15 ML BOTTLE BOTH EYES SCH ×5 (06:16→21:18)
[2020-10-19] MEDS: Furosemide 40 MG/4 ML VIAL IVP SCH (09:54)
[2020-10-19] MEDS: Pantoprazole 40 MG VIAL IVP SCH (09:55)
[2020-10-19] MEDS: Cholecalciferol (D-3) 1,000 UNIT (25MCG) TABLET PO SCH (10:07)
[2020-10-19 14:28] LABS: BUN/Creatinine Ratio 85 (6-26); Blood Urea Nitrogen 34 mg/dL (8-23); Calcium 9.6 mg/dL (8.6-10.3); Carbon Dioxide 32 mEq/L (23-29); Chloride 98 mEq/L (98-107); Glucose 181 mg/dL (70-105); Osmolality,Calculated 290 (280-300); Phosphorous 3.1 mg/dL (2.7-4.5); Potassium 3.6 mEq/L (3.5-5.1); Sodium 134 mEq/L (136-145); eGFR For African Americans > 60 (> 60); eGFR For Non-African Americans > 60 (> 60)
[2020-10-19] MEDS ORDERED: *HR* Metoprolol 5 MG/5 ML VIAL IVP SCH (15:00)
[2020-10-19] MEDS ORDERED: *HR* Metoprolol 5 MG/5 ML VIAL IVP ONE (15:30)
[2020-10-19 16:34] LABS: Bilirubin,Urine Negative (Negative); Blood,Urine Negative (Negative); Clarity,Urine Clear (Clear); Color,Urine Yellow (Yellow); Glucose,Urine (UA) Normal (Normal); Ketones,Urine Negative (Negative); Leukocyte Esterase,Urine Negative (Negative); Nitrite,Urine Negative (Negative); PH,Urine 6.5 pH Units (5.0-8.0); Protein,Urine Trace mg/dL (Neg-Trace); Specific Gravity,Urine 1.023 (1.010-1.025); Urobilinogen,Urine Normal (Normal)
[2020-10-19] MEDS: *HR* Metoprolol 5 MG/5 ML VIAL IVP SCH (16:44)
[2020-10-19] MEDS ORDERED: Clinimix 5%-20% SOLUTION 2,000 ML with MVI, adult with vitamin K 10 ML, Sodium Phosph... IVC SCH (17:00)
[2020-10-19] MEDS: Valproic Acid INJ 250 MG in 0.9 % Sodium Chloride 100 ML IVPB SCH ×2 (17:02→21:30)
[2020-10-20] MEDS: Artificial Tears SOLN 15 ML BOTTLE BOTH EYES SCH ×6 (00:25→21:24)
[2020-10-20] MEDS: Insulin LISPRO 300 UNITS/3 ML VIAL SUBQ SCH ×7 (00:26→21:23)
[2020-10-20] MEDS: *HR* Metoprolol 5 MG/5 ML VIAL IVP SCH ×2 (00:26→06:01)
[2020-10-20] MEDS: methylPREDNISolone 125 MG/2 ML VIAL IVP SCH ×3 (00:30→18:08)
[2020-10-20] MEDS: Cefepime HCl 2,000 MG in Water for inj. (sterile) 20 ML IVP SCH ×3 (01:50→18:09)
[2020-10-20] MEDS: Valproic Acid INJ 250 MG in 0.9 % Sodium Chloride 100 ML IVPB SCH ×4 (03:20→23:34)
[2020-10-20 03:51] LABS: Hematocrit 31.4 % (37.5-50.1); Hemoglobin 10.3 g/dL (12.9-16.9); Mean Corpuscular HGB Conc 32.8 g/dL (31.6-35.5); Mean Corpuscular Hemoglobin 30.4 pg (28.0-33.3); Mean Corpuscular Volume 92.6 fL (83.0-100.0); Mean Platelet Volume 10.6 fL (9.4-12.4); Platelet Count 120 K/mcL (140-400); Red Blood Count 3.39 M/mcL (4.19-5.50); Red Cell Distribution Width 15.6 % (11.5-14.5); White Blood Count 15.2 K/mcL (4.3-11.1)
[2020-10-20 04:24] LABS: BUN/Creatinine Ratio 97 (6-26); Blood Urea Nitrogen 35 mg/dL (8-23); Calcium 9.2 mg/dL (8.6-10.3); Carbon Dioxide 31 mEq/L (23-29); Chloride 99 mEq/L (98-107); Glucose 178 mg/dL (70-105); Osmolality,Calculated 288 (280-300); Phosphorous 2.5 mg/dL (2.7-4.5); Potassium 3.7 mEq/L (3.5-5.1); Sodium 133 mEq/L (136-145); eGFR For African Americans > 60 (> 60); eGFR For Non-African Americans > 60 (> 60)
[2020-10-20] MEDS: *HR* Enoxaparin 40 MG/0.4 ML SYRINGE SQ SCH (06:02)
[2020-10-20] MEDS: Docusate Oral Soln 100 MG/10 ML UDC GTUBE SCH ×2 (09:31→21:24)
[2020-10-20] MEDS: Cholecalciferol (D-3) 1,000 UNIT (25MCG) TABLET PO SCH (09:31)
[2020-10-20] MEDS: Chlorhexidine Rinse 15 ML MOUTHWASH MM SCH ×2 (09:31→21:24)
[2020-10-20] MEDS: Pantoprazole 40 MG VIAL IVP SCH (10:21)
[2020-10-20] MEDS ORDERED: *HR* Metoprolol 5 MG/5 ML VIAL IVP PRN (10:32)
[2020-10-20] MEDS ORDERED: Clinimix 5%-20% SOLUTION 2,000 ML with MVI, adult with vitamin K 10 ML, Sodium Phosph... IVC SCH (17:00)
[2020-10-20] MEDS ORDERED: Clinimix 5%-20% SOLUTION 2,000 ML with MVI, adult with vitamin K 10 ML IVC SCH (17:00)
[2020-10-21] MEDS: methylPREDNISolone 125 MG/2 ML VIAL IVP SCH ×3 (01:35→17:06)
[2020-10-21] MEDS: Cefepime HCl 2,000 MG in Water for inj. (sterile) 20 ML IVP SCH ×3 (01:37→17:05)
[2020-10-21] MEDS: Insulin LISPRO 300 UNITS/3 ML VIAL SUBQ SCH ×6 (01:53→20:59)
[2020-10-21] MEDS: Artificial Tears SOLN 15 ML BOTTLE BOTH EYES SCH ×6 (01:53→20:53)
[2020-10-21] MEDS: Valproic Acid INJ 250 MG in 0.9 % Sodium Chloride 100 ML IVPB SCH ×4 (04:30→21:10)
[2020-10-21] MEDS: *HR* Enoxaparin 40 MG/0.4 ML SYRINGE SQ SCH (05:35)
[2020-10-21] MEDS: Pantoprazole 40 MG VIAL IVP SCH (09:23)
[2020-10-21] MEDS: Chlorhexidine Rinse 15 ML MOUTHWASH MM SCH ×2 (09:25→20:59)
[2020-10-21] MEDS: Cholecalciferol (D-3) 1,000 UNIT (25MCG) TABLET PO SCH (09:30)
[2020-10-21] MEDS: Docusate Oral Soln 100 MG/10 ML UDC GTUBE SCH ×2 (09:30→20:53)
[2020-10-21 10:45] LABS: BUN/Creatinine Ratio 96 (6-26); Blood Urea Nitrogen 27 mg/dL (8-23); Calcium 9.1 mg/dL (8.6-10.3); Carbon Dioxide 28 mEq/L (23-29); Chloride 102 mEq/L (98-107); Glucose 162 mg/dL (70-105); Magnesium 1.8 mg/dL (1.6-2.6); Osmolality,Calculated 289 (280-300); Phosphorous 2.1 mg/dL (2.7-4.5); Potassium 3.9 mEq/L (3.5-5.1); Sodium 135 mEq/L (136-145); eGFR For African Americans > 60 (> 60); eGFR For Non-African Americans > 60 (> 60)
[2020-10-21] MEDS ORDERED: Clinimix 5%-20% SOLUTION 2,000 ML with MVI, adult with vitamin K 10 ML, ZN/CU/MN/SE 1... IVC SCH (17:00)
[2020-10-21] MEDS ORDERED: Potassium Phosphate 44 MEQ in 0.9 % Sodium Chloride 250 ML IVPB ONE (17:19)
[2020-10-22] MEDS: Insulin LISPRO 300 UNITS/3 ML VIAL SUBQ SCH ×7 (00:57→23:54)
[2020-10-22] MEDS: methylPREDNISolone 125 MG/2 ML VIAL IVP SCH ×2 (00:58→07:48)
[2020-10-22] MEDS: Artificial Tears SOLN 15 ML BOTTLE BOTH EYES SCH ×7 (00:58→23:53)
[2020-10-22] MEDS: Cefepime HCl 2,000 MG in Water for inj. (sterile) 20 ML IVP SCH ×3 (02:50→17:25)
[2020-10-22] MEDS: Valproic Acid INJ 250 MG in 0.9 % Sodium Chloride 100 ML IVPB SCH ×4 (03:59→21:45)
[2020-10-22] MEDS: *HR* Enoxaparin 40 MG/0.4 ML SYRINGE SQ SCH (04:04)
[2020-10-22] MEDS: Pantoprazole 40 MG VIAL IVP SCH (07:47)
[2020-10-22] MEDS: Chlorhexidine Rinse 15 ML MOUTHWASH MM SCH ×2 (07:49→21:45)
[2020-10-22] MEDS: Cholecalciferol (D-3) 1,000 UNIT (25MCG) TABLET PO SCH (07:49)
[2020-10-22] MEDS: Docusate Oral Soln 100 MG/10 ML UDC GTUBE SCH ×2 (07:49→21:45)
[2020-10-22 12:59] LABS: BUN/Creatinine Ratio 133 (6-26); Blood Urea Nitrogen 28 mg/dL (8-23); Calcium 9.3 mg/dL (8.6-10.3); Carbon Dioxide 27 mEq/L (23-29); Chloride 105 mEq/L (98-107); Glucose 164 mg/dL (70-105); Magnesium 1.7 mg/dL (1.6-2.6); Osmolality,Calculated 287 (280-300); Phosphorous 2.6 mg/dL (2.7-4.5); Potassium 4.1 mEq/L (3.5-5.1); Sodium 134 mEq/L (136-145); eGFR For African Americans > 60 (> 60); eGFR For Non-African Americans > 60 (> 60)
[2020-10-22] MEDS ORDERED: Clinimix 5%-20% SOLUTION 2,000 ML with MVI, adult with vitamin K 10 ML, Sodium Phosph... IVC SCH (17:00)
[2020-10-23] MEDS: Cefepime HCl 2,000 MG in Water for inj. (sterile) 20 ML IVP SCH ×2 (02:14→08:21)
[2020-10-23 04:21] LABS: Hematocrit 31.9 % (37.5-50.1); Hemoglobin 10.2 g/dL (12.9-16.9); Mean Corpuscular Hemoglobin 30.9 pg (28.0-33.3); Mean Corpuscular Volume 96.7 fL (83.0-100.0); Mean Platelet Volume 10.6 fL (9.4-12.4); Platelet Count 125 K/mcL (140-400)
[2020-10-23] MEDS: Valproic Acid INJ 250 MG in 0.9 % Sodium Chloride 100 ML IVPB SCH (04:21)
[2020-10-23 04:33] LABS: BUN/Creatinine Ratio 113 (6-26); Blood Urea Nitrogen 27 mg/dL (8-23); Calcium 9.1 mg/dL (8.6-10.3); Carbon Dioxide 26 mEq/L (23-29); Chloride 105 mEq/L (98-107); Glucose 79 mg/dL (70-105); Magnesium 1.6 mg/dL (1.6-2.6); Osmolality,Calculated 280 (280-300); Phosphorous 1.8 mg/dL (2.7-4.5); Potassium 3.8 mEq/L (3.5-5.1); Sodium 133 mEq/L (136-145); eGFR For African Americans > 60 (> 60); eGFR For Non-African Americans > 60 (> 60)
[2020-10-23] MEDS: Insulin LISPRO 300 UNITS/3 ML VIAL SUBQ SCH ×4 (05:08→17:49)
[2020-10-23] MEDS: Artificial Tears SOLN 15 ML BOTTLE BOTH EYES SCH ×6 (05:08→23:09)
[2020-10-23] MEDS: *HR* Enoxaparin 40 MG/0.4 ML SYRINGE SQ SCH (06:53)
[2020-10-23] MEDS: predniSONE 20 MG TABLET PO SCH (08:20)
[2020-10-23] MEDS: Docusate Oral Soln 100 MG/10 ML UDC PO SCH ×2 (08:23→20:54)
[2020-10-23] MEDS: Cholecalciferol (D-3) 1,000 UNIT (25MCG) TABLET PO SCH (08:24)
[2020-10-23] MEDS: Chlorhexidine Rinse 15 ML MOUTHWASH MM SCH ×2 (08:28→20:54)
[2020-10-23] MEDS: Divalproex (12 HR) 500 MG TABLET PO SCH ×2 (09:58→20:54)
[2020-10-24 01:30] LABS: BUN/Creatinine Ratio 104 (6-26); Blood Urea Nitrogen 24 mg/dL (8-23); Calcium 8.1 mg/dL (8.6-10.3); Carbon Dioxide 28 mEq/L (23-29); Chloride 103 mEq/L (98-107); Glucose 76 mg/dL (70-105); Magnesium 1.6 mg/dL (1.6-2.6); Osmolality,Calculated 279 (280-300); Phosphorous 2.5 mg/dL (2.7-4.5); Potassium 4.3 mEq/L (3.5-5.1); Sodium 133 mEq/L (136-145); eGFR For African Americans > 60 (> 60); eGFR For Non-African Americans > 60 (> 60)
[2020-10-24 01:40] LABS: Hematocrit 29.3 % (37.5-50.1); Hemoglobin 9.7 g/dL (12.9-16.9); Mean Corpuscular HGB Conc 33.1 g/dL (31.6-35.5); Mean Corpuscular Hemoglobin 31.2 pg (28.0-33.3); Mean Corpuscular Volume 94.2 fL (83.0-100.0); Mean Platelet Volume 10.6 fL (9.4-12.4); Platelet Count 145 K/mcL (140-400); Red Blood Count 3.11 M/mcL (4.19-5.50); Red Cell Distribution Width 17.3 % (11.5-14.5); White Blood Count 16.2 K/mcL (4.3-11.1)
[2020-10-24] MEDS: Artificial Tears SOLN 15 ML BOTTLE BOTH EYES SCH ×3 (03:18→12:01)
[2020-10-24] MEDS: *HR* Enoxaparin 40 MG/0.4 ML SYRINGE SQ SCH (05:18)
[2020-10-24] MEDS: predniSONE 20 MG TABLET PO SCH (10:10)
[2020-10-24] MEDS: Cholecalciferol (D-3) 1,000 UNIT (25MCG) TABLET PO SCH (10:10)
[2020-10-24] MEDS: Divalproex (12 HR) 500 MG TABLET PO SCH (10:10)
[2020-10-24] MEDS: Chlorhexidine Rinse 15 ML MOUTHWASH MM SCH (10:11)
[2020-10-24] MEDS: Docusate Oral Soln 100 MG/10 ML UDC PO SCH (10:11)
[2020-10-24] MEDS: Insulin LISPRO 300 UNITS/3 ML VIAL SUBQ SCH ×2 (10:11→11:56)
[2020-10-24 10:32] VITALS: BP 123/78; PULSE 76; TEMP 97.6; O2SAT 96
== END 2020-10-24 17:02 | DRG 329 ==
LOC: 3ANU → SUATTDRO 01:49 → 2NNU 10-09 07:55 → ICNU 10-09 15:29 → 3NENU 10-18 19:11 → 3BNU 10-23 20:39
PROVIDERS: ADMIT Student in an Organized Health Care Education/Training Program; ATTEND Internal Medicine

== ENCOUNTER 2021-03-21 08:05 | Inpatient (IN) ==
[2021-03-21] MEDS ORDERED: Ondansetron 4 MG/2 ML VIAL IVP PRN (12:48)
[2021-03-21] MEDS ORDERED: Naloxone 0.4 MG/ML INJ IVP PRN (12:48)
[2021-03-21] MEDS ORDERED: 0.9 % Sodium Chloride 1,000 ML IVC SCH (13:00)
[2021-03-21 13:48] LABS: Basophils % 0.2 %; Eosinophils % 0.2 %; Hematocrit 41.4 % (37.5-50.1); Hemoglobin 13.4 g/dL (12.9-16.9); Immature Granulocytes % 0.4 % (0-4); Lymphocytes # 1.3 K/mcL (0.6-4.6); Lymphocytes % 27.3 %; Mean Corpuscular HGB Conc 32.4 g/dL (31.6-35.5); Mean Corpuscular Hemoglobin 29.5 pg (28.0-33.3); Monocytes # 0.6 K/mcL (0.0-1.3); Monocytes % 12.8 %; Neutrophils # 2.7 K/mcL (1.6-8.9); Platelet Count 158 K/mcL (140-400); Red Blood Count 4.55 M/mcL (4.19-5.50); Red Cell Distribution Width 14.4 % (11.5-14.5); Segmented Neutrophils % 59.1 %; White Blood Count 4.6 K/mcL (4.3-11.1)
[2021-03-21 13:55] LABS: INR 1.1; Prothrombin Time 12.2 Seconds (9.4-12.1)
[2021-03-21 14:06] LABS: Alanine Aminotransferase 9 Units/L (7-52); Albumin 3.1 g/dL (3.5-5.7); Albumin/Globulin Ratio 1.1 (1.1-2.2); Alkaline Phosphatase 93 Units/L (34-104); Aspartate Amino Transferase 12 Units/L (13-39); BUN/Creatinine Ratio 22 (6-26); Bilirubin,Total 0.5 mg/dL (0.3-1.0); Blood Urea Nitrogen 9 mg/dL (8-23); Calcium 9.3 mg/dL (8.6-10.3); Carbon Dioxide 33 mEq/L (23-29); Chloride 99 mEq/L (98-107); Globulin 2.7 g/dL (2.4-3.5); Glucose 79 mg/dL (70-105); Osmolality,Calculated 276 (280-300); Sodium 134 mEq/L (136-145); Total Protein 5.8 g/dL (6.4-8.9); eGFR For African Americans > 60 (> 60); eGFR For Non-African Americans > 60 (> 60)
[2021-03-21] MEDS: *HR* Heparin 5,000 UNIT/ML VIAL SQ SCH (17:46)
[2021-03-21] MEDS: SODIUM CHLORIDE 0.9% IVPB SCH ×2 (17:46→23:12)
[2021-03-21] MEDS: VALPROIC ACID IVPB SCH ×2 (17:46→23:12)
[2021-03-21] MEDS ORDERED: Dextrose Gel 15 GM/37.5 ML TUBE PO PRN (18:29)
[2021-03-21] MEDS ORDERED: D5% in Water 1,000 ML IVC PRN (18:29)
[2021-03-21] MEDS ORDERED: *HR* Dextrose 50 % in Water (Syg) 50 ML SYRINGE IVP PRN (18:29)
[2021-03-21] MEDS: D5% in 0.9% NACL 1,000 ML IVC SCH (19:03)
[2021-03-22] MEDS: VALPROIC ACID IVPB SCH ×3 (05:33→19:17)
[2021-03-22] MEDS: SODIUM CHLORIDE 0.9% IVPB SCH ×3 (05:33→19:17)
[2021-03-22 06:35] LABS: Basophils % 0.4 %; Eosinophils % 0.2 %; Hematocrit 38.8 % (37.5-50.1); Hemoglobin 12.6 g/dL (12.9-16.9); Immature Granulocytes % 0.6 % (0-4); Lymphocytes # 1.2 K/mcL (0.6-4.6); Lymphocytes % 23.1 %; Mean Corpuscular HGB Conc 32.5 g/dL (31.6-35.5); Mean Corpuscular Hemoglobin 29.5 pg (28.0-33.3); Mean Corpuscular Volume 90.9 fL (83.0-100.0); Mean Platelet Volume 10.2 fL (9.4-12.4); Monocytes # 0.8 K/mcL (0.0-1.3); Monocytes % 15.3 %; Neutrophils # 3.2 K/mcL (1.6-8.9); Platelet Count 156 K/mcL (140-400); Red Blood Count 4.27 M/mcL (4.19-5.50); Red Cell Distribution Width 14.3 % (11.5-14.5); Segmented Neutrophils % 60.4 %; White Blood Count 5.4 K/mcL (4.3-11.1)
[2021-03-22] MEDS: D5% in 0.9% NACL 1,000 ML IVC SCH ×2 (06:54→17:15)
[2021-03-22] MEDS: *HR* Heparin 5,000 UNIT/ML VIAL SQ SCH ×2 (07:01→17:15)
[2021-03-22] MEDS ORDERED: *HR* Labetalol 20 MG/4 ML SYRINGE IVP PRN (12:24)
[2021-03-22] MEDS ORDERED: Ipratropium/Albuterol Neb 3 ML IH PRN (12:25)
[2021-03-22] MEDS: Insulin LISPRO 300 UNITS/3 ML VIAL SUBQ SCH ×2 (13:17→18:39)
[2021-03-23] MEDS: Insulin LISPRO 300 UNITS/3 ML VIAL SUBQ SCH ×4 (04:47→18:14)
[2021-03-23] MEDS: *HR* Heparin 5,000 UNIT/ML VIAL SQ SCH ×2 (04:56→18:13)
[2021-03-23] MEDS: VALPROIC ACID IVPB SCH ×4 (04:56→22:39)
[2021-03-23] MEDS: SODIUM CHLORIDE 0.9% IVPB SCH ×4 (04:56→22:39)
[2021-03-23] MEDS: D5% in 0.9% NACL 1,000 ML IVC SCH (04:57)
[2021-03-23] MEDS: Pantoprazole 40 MG VIAL IVP SCH (09:35)
[2021-03-23 10:34] LABS: BUN/Creatinine Ratio 12 (6-26); Blood Urea Nitrogen 5 mg/dL (8-23); Calcium 9.4 mg/dL (8.6-10.3); Carbon Dioxide 33 mEq/L (23-29); Chloride 100 mEq/L (98-107); Glucose 91 mg/dL (70-105); Magnesium 1.7 mg/dL (1.6-2.6); Osmolality,Calculated 281 (280-300); Phosphorous 2.9 mg/dL (2.7-4.5); Potassium 3.3 mEq/L (3.5-5.1); Sodium 137 mEq/L (136-145); eGFR For African Americans > 60 (> 60); eGFR For Non-African Americans > 60 (> 60)
[2021-03-23] MEDS: Dextrose Gel 15 GM/37.5 ML TUBE PO PRN ×2 (23:26→23:47)
[2021-03-24] MEDS: Insulin LISPRO 300 UNITS/3 ML VIAL SUBQ SCH ×4 (00:42→20:04)
[2021-03-24] MEDS: SODIUM CHLORIDE 0.9% IVPB SCH ×4 (03:57→21:10)
[2021-03-24] MEDS: VALPROIC ACID IVPB SCH ×4 (03:57→21:10)
[2021-03-24 05:19] LABS: Basophils % 0.6 %; Eosinophils % 0.6 %; Hematocrit 42.9 % (37.5-50.1); Hemoglobin 13.6 g/dL (12.9-16.9); Immature Granulocytes % 0.2 % (0-4); Lymphocytes # 1.4 K/mcL (0.6-4.6); Lymphocytes % 26.4 %; Mean Corpuscular HGB Conc 31.7 g/dL (31.6-35.5); Mean Corpuscular Hemoglobin 29.1 pg (28.0-33.3); Mean Corpuscular Volume 91.9 fL (83.0-100.0); Mean Platelet Volume 9.8 fL (9.4-12.4); Monocytes # 0.8 K/mcL (0.0-1.3); Monocytes % 14.4 %; Neutrophils # 3.1 K/mcL (1.6-8.9); Platelet Count 152 K/mcL (140-400); Red Blood Count 4.67 M/mcL (4.19-5.50); Red Cell Distribution Width 14.3 % (11.5-14.5); Segmented Neutrophils % 57.8 %; White Blood Count 5.3 K/mcL (4.3-11.1)
[2021-03-24 05:37] LABS: BUN/Creatinine Ratio 20 (6-26); Blood Urea Nitrogen 8 mg/dL (8-23); Calcium 9.6 mg/dL (8.6-10.3); Carbon Dioxide 30 mEq/L (23-29); Chloride 105 mEq/L (98-107); Glucose 80 mg/dL (70-105); Magnesium 1.8 mg/dL (1.6-2.6); Osmolality,Calculated 291 (280-300); Phosphorous 3.3 mg/dL (2.7-4.5); Potassium 3.8 mEq/L (3.5-5.1); Sodium 142 mEq/L (136-145); eGFR For African Americans > 60 (> 60); eGFR For Non-African Americans > 60 (> 60)
[2021-03-24] MEDS: *HR* Heparin 5,000 UNIT/ML VIAL SQ SCH ×2 (06:37→17:28)
[2021-03-24] MEDS: Pantoprazole 40 MG VIAL IVP SCH (09:00)
[2021-03-24] MEDS ORDERED: Metoclopramide 10 MG/2 ML VIAL IVP ONE (09:41)
[2021-03-24] MEDS: Dextrose Gel 15 GM/37.5 ML TUBE PO PRN (12:00)
[2021-03-24] MEDS: BuPROPion SR (12 HR) 100 MG TABLET PO SCH (20:10)
[2021-03-24] MEDS: cloZAPine 100 MG TABLET PO SCH (20:11)
[2021-03-24] MEDS: Mirtazapine 15 MG TABLET PO SCH (20:11)
[2021-03-25] MEDS: Insulin LISPRO 300 UNITS/3 ML VIAL SUBQ SCH ×4 (00:24→18:10)
[2021-03-25] MEDS: SODIUM CHLORIDE 0.9% IVPB SCH ×2 (03:08→10:12)
[2021-03-25] MEDS: VALPROIC ACID IVPB SCH ×2 (03:08→10:12)
[2021-03-25] MEDS ORDERED: 0.9 % Sodium Chloride 500 ML IV ONE (05:01)
[2021-03-25] MEDS: *HR* Heparin 5,000 UNIT/ML VIAL SQ SCH ×2 (05:07→18:10)
[2021-03-25 09:31] LABS: Magnesium 1.6 mg/dL (1.6-2.6); Phosphorous 3.2 mg/dL (2.7-4.5)
[2021-03-25 09:32] LABS: BUN/Creatinine Ratio 25 (6-26); Blood Urea Nitrogen 8 mg/dL (8-23); Calcium 8.9 mg/dL (8.6-10.3); Carbon Dioxide 33 mEq/L (23-29); Chloride 102 mEq/L (98-107); Glucose 83 mg/dL (70-105); Osmolality,Calculated 283 (280-300); Potassium 3.5 mEq/L (3.5-5.1); Sodium 138 mEq/L (136-145); eGFR For African Americans > 60 (> 60); eGFR For Non-African Americans > 60 (> 60)
[2021-03-25] MEDS: Pantoprazole 40 MG VIAL IVP SCH (10:07)
[2021-03-25] MEDS: BuPROPion SR (12 HR) 100 MG TABLET PO SCH ×2 (10:08→21:25)
[2021-03-25] MEDS: cloZAPine 100 MG TABLET PO SCH ×2 (10:08→21:24)
[2021-03-25] MEDS ORDERED: Bisacodyl 10 MG RECTAL SUPPOSITORY RC PRN (11:32)
[2021-03-25] MEDS: Valproic Acid Oral Soln 250 MG/5 ML UDC PO SCH (21:24)
[2021-03-25] MEDS: Mirtazapine 15 MG TABLET PO SCH (21:25)
[2021-03-26] MEDS: Insulin LISPRO 300 UNITS/3 ML VIAL SUBQ SCH ×2 (02:41→05:47)
[2021-03-26] MEDS: *HR* Heparin 5,000 UNIT/ML VIAL SQ SCH ×2 (05:50→17:00)
[2021-03-26] MEDS: Valproic Acid Oral Soln 250 MG/5 ML UDC PO SCH ×2 (07:50→19:54)
[2021-03-26] MEDS: cloZAPine 100 MG TABLET PO SCH ×2 (07:50→19:55)
[2021-03-26] MEDS: BuPROPion SR (12 HR) 100 MG TABLET PO SCH ×2 (07:50→19:55)
[2021-03-26 16:13] LABS: Adenovirus Not Detected (Not Detect); Bordetella Pertussis Not Detected (Not Detect); Chlamydophila pneumoniae Not Detected (Not Detect); Coronavirus 229E Not Detected (Not Detect); Coronavirus HKU1 Not Detected (Not Detect); Coronavirus NL63 Not Detected (Not Detect); Coronavirus OC43 Not Detected (Not Detect); Human Metapneumovirus Not Detected (Not Detect); Human Rhinovirus/Enterovirus Not Detected (Not Detect); Influenza A Subtype 2009 H1 Not Detected (Not Detect); Influenza B Not Detected (Not Detect); Mycoplasma pneumoniae Not Detected (Not Detect); Parainfluenza Virus 1 Not Detected (Not Detect); Parainfluenza Virus 2 Not Detected (Not Detect); Parainfluenza Virus 3 Not Detected (Not Detect); Parainfluenza Virus 4 Not Detected (Not Detect); Respiratory Syncytial Virus Not Detected (Not Detect); SARS-CoV-2 Not Detected (Not Detect)
[2021-03-26] MEDS: Mirtazapine 15 MG TABLET PO SCH (19:55)
[2021-03-27] MEDS: *HR* Heparin 5,000 UNIT/ML VIAL SQ SCH (05:24)
[2021-03-27 07:38] VITALS: BP 112/73; PULSE 98; TEMP 97; O2SAT 94
[2021-03-27] MEDS: BuPROPion SR (12 HR) 100 MG TABLET PO SCH (08:49)
[2021-03-27] MEDS: Valproic Acid Oral Soln 250 MG/5 ML UDC PO SCH (08:49)
[2021-03-27] MEDS: cloZAPine 100 MG TABLET PO SCH (08:50)
== END 2021-03-27 10:42 | DRG 389 ==
LOC: 3ANU → SUATTDRO 12:13
PROVIDERS: ADMIT General Practice; ATTEND Internal Medicine